=== PATIENT | female | born 2000 | race Caucasian/White ===

== ENCOUNTER → 2019-11-24 15:23 | Outpatient (BNVA) | payer SELFPAY | PROVIDERS: Visit Provider Nurse Practitioner Family | DX: N39.0 Urinary tract infection, site not specified (principal) | CPT/HCPCS: 81003; 87491; 87591; 87661 ==

== ENCOUNTER 2020-07-11 22:03 | Emergency (ER) | payer SELFPAY ==
[2020-07-11 22:40] VITALS: BP 115/77; PULSE 75; RESP 18; TEMP 36.3; O2SAT 98; BMI 35.8
[2020-07-11 23:42] VITALS: BP 120/75; PULSE 65; RESP 16; O2SAT 100
[2020-07-12] VITALS (10 sets, daily range): BP systolic 99–122; BP diastolic 51–75; PULSE 51–76; RESP 17–20; O2SAT 94–99
[2020-07-12 00:24] LABS: Basophils % 0.3 %; Eosinophils # 0.1 10^3/uL (0.0-0.8); Hematocrit 41.5 % (37.0-47.0); Hemoglobin 13.4 g/dL (11.5-15.3); Lymphocytes # 3.6 10^3/uL (0.8-4.8); Lymphocytes % 34.2 %; Mean Corpuscular HGB Conc 32.3 g/dL (30.0-36.0); Mean Corpuscular Hemoglobin 27.9 pg (28.0-34.0); Mean Corpuscular Volume 86.3 fL (81-99); Mean Platelet Volume 9.3 fL (7.4-10.4); Monocytes # 0.8 10^3/uL (0.2-0.9); Monocytes % 7.7 %; Neutrophils # 5.95 10^3/uL (1.8-7.7); Neutrophils % 56.5 %; Nucleated Red Blood Cells % 0 %; Platelet Count 322 10^3/cmm (130-400); Red Blood Count 4.81 10^6/uL (4.1-5.3); Red Cell Distribution Width 12.2 % (12.1-15.1); White Blood Count 10.5 10^3/uL (4.0-10.0)
[2020-07-12 00:40] LABS: HCG, Serum Qual Negative (Negative)
[2020-07-12 00:44] LABS: Alanine Aminotransferase 10 U/L (0-33); Albumin Level 4.7 g/dL (3.5-5.2); Alkaline Phosphatase 94 IU/L (35-105); Anion Gap 14.7 (5-19); Aspartate Amino Transferase 13 U/L (0-32); Blood Urea Nitrogen 11 mg/dL (6-20); Calcium 9.5 mg/dL (8.5-10.5); Carbon Dioxide 26 mmol/L (22-29); Chloride 99 mmol/L (98-107); Globulin 3.3 g/dL (1.3-4.6); Glomerular Filtration Rate 90.5 mL/min (90-130); Glucose 93 mg/dL (65-115); Lipase 20 U/L (13-60); Osmolality Calculated 281 mOsm/kg (285-295); Potassium 3.7 mmol/L (3.5-5.1); Sodium 136 mmol/L (136-145); Total Bilirubin 0.2 mg/dL (0.15-1.2)
--- NOTE | 2020-07-12 01:08 | US_ITS ---
WS: [id number] RIGHT UPPER QUADRANT ULTRASOUND HISTORY: Pain COMPARISON: 08/05/2015 Liver: 13.7 cm in length. Normal size liver. No bile duct dilatation or mass. Gallbladder: Normally distended gallbladder with no stones or wall thickening. CBD: 0.3 cm Pancreas: Not well visualized. Right kidney: 9.6 cm in length. Normal size and echogenicity. No hydronephrosis or mass. Aorta and IVC: Unremarkable abdominal aorta and IVC. No ascites. US/US gall bladder [id number] IMPRESSION: Normal RIGHT upper quadrant ultrasound.
--- NOTE | 2020-07-12 01:45 | XR_ITS ---
WS: [id number] PORTABLE CHEST HISTORY: Pleuritic pain COMPARISON: 06/19/2019 Lungs are clear and well expanded. No pleural effusion or pneumothorax. Cardiac size: Normal. Mediastinum/Aorta: Normal mediastinum. No osseous abnormality seen. XR/XR chest 1V portable [id number] IMPRESSION: Unremarkable portable chest.
--- NOTE | 2020-07-12 01:45 | ED_ITS ---
HPI - Abdominal Pain General: Chief Complaint: Abdominal Pain Stated Complaint: LOW BACK PAIN X 2 MONTHS Time Seen by Provider: 07/12/20 01:03 Source: patient Mode of arrival: ambulatory Limitations: no limitations History of Present Illness: HPI narrative: Ro is a very nice 19-year-old female who comes in complaining of right upper quadrant and right back pain. Patient states the back pain and abdominal pain is been present for over a month. She states the pain is sharp and hurts more when she takes a deep breath and moves. The pain is not in her chest but she says only in the upper part of her right abdomen. It does not migrate. She describes the pain is sharp in nature. She has associated nausea but no vomiting. She states that she feels like she is constipated and does not have a bowel movement every day but when she does it is soft and loose. Patient has no fevers or chills. She denies any urinary symptoms or vaginal discharge or bleeding. Prior to this episode she is never had anything similar to this in the past. Associated Symptoms: Reports constipation and nausea; Denies chills, coffee ground emesis, GI cramping, diarrhea, dysuria, fever(s), heartburn, hematochezia, hematuria, hematemesis, melena, syncope and vomiting Related Data: Date of Last Menstrual Period: 06/28/20 Review of Systems Const: Denies: fever(s), chills, body aches, fatigue, malaise or diaphoresis Eyes: Denies: change in vision, blurry vision, photophobia, eye discomfort, ey e discharge, eye redness or yellow eyes ENMT: Denies: throat pain, odynophagia, hoarseness, swelling of lips/tongue, ear or mastoid pain, ear discharge, change in hearing or nasal discharge Card: Denies: chest pain, palpitations, irregular heart rhythm, edema, lightheadedness, syncope, pre-syncope, dyspnea on exertion or orthopnea Resp: Denies: dyspnea, productive cough, non-productive cough, wheezing, hemoptysis or chest congestion GI: Reports: abdominal pain, nausea and constipation; Denies: vomiting, hematemesis, coffee ground emesis, heartburn, diarrhea, GI cramping, hematochezia or melena : Denies: flank pain, dysuria, urinary frequency, urinary urgency or hematuria Musc: Denies: neck pain, back pain, extremity pain, extremity swelling, joint pain, joint swelling, joint redness, joint warmth or joint stiffness Skin/Breast: Denies: rash, pruritus, erythema, skin pain or skin tenderness Neuro: Denies: headache(s), numbness in extremities, weakness in extremities, sensory changes, lack of coordination, difficulty walking, dizziness, vertigo, confusion, Slurred speech present or seizure-like activity Kingsley/Lymph: Denies: easy bruising, easy bleeding, petechiae, purpura or enlarged lymph nodes All/Imm: Denies: urticaria, throat swelling, tongue swelling, facial swelling or acute wheezing PFSH ED PFSH: Medical History (Updated 07/12/20 @ 05:48 by Kelly Hagan) No pertinent past medical history Surgical History (Updated 07/12/20 @ 01:47 by Kelly Hagan) No pertinent past surgical history Social History (Updated 11/24/19 @ 14:45 by Amanda Auguste LPN) Smoking and tobacco status: never smoked Alcohol intake: never Female Reproductive History: Date of last menstrual period: 06/28/20 Physical Exam Const: COMMON NORMALS: no acute distress, patient oriented x3, no limitations and alert GENERAL APPEARANCE: cooperative HENMT: COMMON NORMALS: normocephalic, atraumatic, external ears normal, EAC's normal and Normal external nose present HEAD & SCALP: normal to inspection, normocephalic and atraumatic FACE & SINUS: normal facial exam and face symme tric NOSE: Normal external nose present and Normal nares present EXTERNAL EAR: Yes external ears normal EXTERNAL AUDITORY CANAL: EAC's normal MOUTH: Normal oral and palatal mucosa present, lip normal and tongue normal Eye: COMMON NORMALS: Equal, round and reactive pupils present and conjunctivae normal GENERAL EYE: appearance normal, both eyes and all related structures ALIGNMENT: Yes alignment normal PERIORBITAL: periorbital findings normal EYELID: eyelids normal CONJUNCTIVA: Yes conjunctivae normal SCLERA: sclerae normal PUPIL: Yes Equal, round and reactive pupils present Neck/C-Spine: COMMON NORMALS: full ROM, no lymphadenopathy, supple, no meningeal signs and no JVD GENERAL: Yes normal visual inspection and Yes trachea midline Chest: COMMONS NORMALS: normal inspection of the chest and normal palpation of entire chest wall Resp: COMMON NORMALS: normal respiratory effort, No retractions, No use of acc essory muscles and clear to auscultation bilaterally EFFORT & INSPECTION: Yes able to speak in complete sentences and Yes symmetric chest movement AUSCULTATION: clear to auscultation bilaterally, no crackles, no rales, no rhonchi and no wheezes Cardio: COMMON NORMALS: no JVD, regular rate, regular rhythm, S1 normal heart sound present and S2 normal heart sound present RATE: regular rate RHYTHM: regular rhythm HEART SOUNDS: S1 normal heart sound present, S2 normal heart sound present, no click, no gallops, no murmurs and no rubs GI: COMMON NORMALS: Soft to palpation and No hepatosplenomegaly present PALPATION: Yes Soft to palpation, Yes Tenderness to palpation present (GI) Details: RUQ (Moderate without guarding or rebound.), No Guarding due to palpation present (GI), No Rigid due to palpation, Yes No hepatosplenomegaly present, No Hernia present, No Palpable mass present and No Pulsatile mass present : COMMON NORMALS: Yes no CVA tenderness BLADDER/KIDNEY EXAM: Yes no CVA tenderness EXTERNAL FEMALE EXAM: No Hernia present Back/Pelvis: COMMON NORMALS: no CVA tenderness, thoracic and lumbar spine normal to inspection, no thoracic nor lumbar tenderness and thoraco-lumbar ROM normal Extremity: COMMON NORMALS: normal to inspection, full ROM, capillary refill normal, no joint enlargement, no clubbing, cyanosis or edema and no calf tenderness Neuro: COMMON NORMALS: patient oriented x3, CN's II-XII intact bilaterally, moves all extremities, no focal motor deficits and no sensory deficits noted SENSORIUM/ORIENTATION: Yes alert MENINGEAL SIGNS: Yes no meningeal signs SPEECH: speech normal Psych: COMMON NORMALS: mental status grossly normal, Normal thought process present, cooperative, normal affect, speech normal and activity/motor behavior normal SPEECH: Yes normal speech THOUGHT PROCESS: Normal thought process present Skin: COMMON NORMALS: no rashes or lesions noted, turgor normal, no jaundice, no petechiae and no mottling GENERAL SKIN EXAM: no rashes or lesions noted and turgor normal Course Vital Signs: Vital signs: Vital Signs Temperature 97.3 F L 07/11/20 22:40 Pulse Rate 76 07/12/20 05:00 Respiratory Rate 18 07/12/20 05:00 Blood Pressure 106/68 07/12/20 05:00 Pulse Oximetry 99 07/12/20 05:00 MDM - Abdominal Pain MDM Narrative: Medical decision making narrative: 0549 -has no pain. As she was here her pain seemed to be migrating down to the right lower quadrant but there is no definitive pain on palpation there. Her pain is still mostly in the right upper quadrant. Her ultrasound is unremarkable and her labs are normal. It is possible she has a dysfunctional gallbladder or ulcer disease. Patient does not take anything at home for antacid so I will place her on Protonix. She agrees to follow with Dr. Wright for further evaluation and care. As her pain is been prolonged over a month or more I do not believe this is appendicitis but as her pain is moved down to the right lower quadrant here she agrees to return in 12 hours for recheck to rule out appendicitis. Patient had no other questions or concerns and agrees with this follow-up plan. Differential Diagnosis: Differential diagnosis abdominal pain: Likely abdominal pain, acute appendicitis, calculus of kidney, constipation, diverticulitis, endometriosis, gastroenteritis, pancreatitis and small bowel obstruction Lab Data: Attestation: I reviewed the patient's lab results. Labs: Lab Results 07/12/20 07/12/20 07/12/20 Range/Units 00:10 00:10 00:10 WBC 10.5 H (4.0-10.0) 10^3/ uL RBC 4.81 (4.1-5.3) 10^6/u L Hgb 13.4 (11.5-15.3) g/dL Hct 41.5 (37.0-47.0) % MCV 86.3 (81-99) fL MCH 27.9 L (28.0-34.0) pg MCHC 32.3 (30.0-36.0) g/dL RDW 12.2 (12.1-15.1) % Plt Count 322 (130-400) 10^3/c mm MPV 9.3 (7.4-10.4) fL Neut % (Auto) 56.5 % Lymph % (Auto) 34.2 % Pennington % (Auto) 7.7 % Eos % (Auto) 1.0 % Baso % (Auto) 0.3 % Neut # (Auto) 5.95 (1.8-7.7) 10^3/u L Lymph # (Auto) 3.6 (0.8-4.8) 10^3/u L Pennington # (Auto) 0.8 (0.2-0.9) 10^3/u L Eos # (Auto) 0.1 (0.0-0.8) 10^3/u L Baso # (Auto) 0.0 (0.0-0.1) 10^3/u L Nucleated RBC % (a uto) 0 % Nucleated RBCs # 0.0 /100WBC D-Dimer (0-0.59) ug/mIFE U Sodium 136 (136-145) mmol/L Potassium 3.7 (3.5-5.1) mmol/L Chloride 99 (98-107) mmol/L Carbon Dioxide 26 (22-29) mmol/L Anion Gap 14.7 (5-19) BUN 11 (6-20) mg/dL Creatinine 0.8 (0.5-0.9) mg/dL GFR Calculation 90.5 (90-130) mL/min Glucose 93 (65-115) mg/dL Calculated Osmolal ity 281 L (285-295) mOsm/k g Calcium 9.5 (8.5-10.5) mg/dL Total Bilirubin 0.2 (0.15-1.2) mg/dL AST 13 (0-32) U/L ALT 10 (0-33) U/L Alkaline Phosphata se 94 (35-105) IU/L Total Protein 8.0 (6.6-8.7) g/dL Albumin 4.7 (3.5-5.2) g/dL Globulin 3.3 (1.3-4.6) g/dL Lipase 20 (13-60) U/L HCG, Qual Negative (Negative) Urine Color (Yellow) Urine Appearance (CLEAR) Urine pH (5-7) Ur Specific Gravit y (1.005-1.030) Urine Protein (Negative) Urine Glucose (UA) (Normal) Urine Ketones (Negative) Urine Blood (Negative) Urine Nitrate (Negative) Urine Bilirubin (Negative) Urine Urobilinogen (Negative) mg/dL Ur Leukocyte Taisha ase (Negative) 07/12/20 07/12/20 Range/Units 00:10 01:55 WBC (4.0-10.0) 10^3/ uL RBC (4.1-5.3) 10^6/u L Hgb (11.5-15.3) g/dL Hct (37.0-47.0) % MCV (81-99) fL MCH (28.0-34.0) pg MCHC (30.0-36.0) g/dL RDW (12.1-15.1) % Plt Count (130-400) 10^3/c mm MPV (7.4-10.4) fL Neut % (Auto) % Lymph % (Auto) % Pennington % (Auto) % Eos % (Auto) % Baso % (Auto) % Neut # (Auto) (1.8-7.7) 10^3/u L Lymph # (Auto) (0.8-4.8) 10^3/u L Pennington # (Auto) (0.2-0.9) 10^3/u L Eos # (Auto) (0.0-0.8) 10^3/u L Baso # (Auto) (0.0-0.1) 10^3/u L Nucleated RBC % (a uto) % Nucleated RBCs # /100WBC D-Dimer <= 0.27 (0-0.59) ug/mIFE U Sodium (136-145) mmol/L Potassium (3.5-5.1) mmol/L Chloride (98-107) mmol/L Carbon Dioxide (22-29) mmol/L Anion Gap (5-19) BUN (6-20) mg/dL Creatinine (0.5-0.9) mg/dL GFR Calculation (90-130) mL/min Glucose (65-115) mg/dL Calculated Osmolal ity (285-295) mOsm/k g Calcium (8.5-10.5) mg/dL Total Bilirubin (0.15-1.2) mg/dL AST (0-32) U/L ALT (0-33) U/L Alkaline Phosphata se (35-105) IU/L Total Protein (6.6-8.7) g/dL Albumin (3.5-5.2) g/dL Globulin (1.3-4.6) g/dL Lipase (13-60) U/L HCG, Qual (Negative) Urine Color Yellow (Yellow) Urine Appearance Clear (CLEAR) Urine pH 6 (5-7) Ur Specific Gravit y 1.015 (1.005-1.030) Urine Protein Neg (Negative) Urine Glucose (UA) Norm (Normal) Urine Ketones Negative (Negative) Urine Blood Neg (Negative) Urine Nitrate Negative (Negative) Urine Bilirubin Neg (Negative) Urine Urobilinogen Norm (Negative) mg/dL Ur Leukocyte Taisha ase Negative (Negative) Imaging Data ^: CXR: Attestation: I personally reviewed and interpreted this imaging study as follows: My impression: No acute cardiopulmonary findings. CT Abd/Pel: Radiologist's impression: [address] [place] [address] CT Scan Report Signed Patient: Ro Rossi Unit #: [id number] : 2000 Age/Sex: 19 / F ADM Date: 07/11/20 Loc: ER Room/Bed: Attending Dr: Ordering Provider/Ordering MD: Kelly Hagan DO Date of Service: 07/12/20 Procedure(s): CT abdomen pelvis w con* [id number] Accession Number(s): [id number] Report Number: [id number] PROCEDURE INFORMATION: Exam: CT Abdomen And Pelvis With Contrast Exam date and time: 07/12/2020 4:32 AM Age: 19 years old Clinical indication: Abdominal pain; Generalized TECHNIQUE: Imaging protocol: Computed tomography of the abdomen and pelvis with intravenous contrast. Radiation optimization: All CT scans at this facility use at least one of these dose optimization techniques: automated exposure control; mA and/or kV adjustment per patient size (includes targeted exams where dose is matched to clinical indication); or iterative reconstruction. Contrast material: OMNI 300; Contrast volume: 95 ml; Contrast route: INTRAVENOUS (IV); COMPARISON: US gall bladder [id number] 07/12/2020 2:53 AM RADIATION DOSE METRICS: Total DLP (mGy-cm): 1049.03 FINDINGS: Liver: No mass. Gallbladder and bile ducts: No calcified stones. No ductal dilation. Pancreas: No ductal dilation. Spleen: No splenomegaly. Adrenals: No mass. Kidneys and ureters: No hydronephrosis. Stomach and bowel: No obstruction. No mucosal thickening. Appendix: No evidence of appendicitis. Intraperitoneal space: No free air. No significant fluid collection. Vasculature: No abdominal aortic aneurysm. Lymph nodes: No enlarged lymph nodes. Urinary bladder: Unremarkable as visualized. Reproductive: Unremarkable as visualized. Bones/joints: Unremarkable. No acute fracture. Soft tissues: Unremarkable. CT/CT abdomen pelvis w con* [id number] IMPRESSION: No acute findings. Radiation Dose CTDIVOL = (mGy): DLP = 1049.03 (mGy-cm) Dictated By: Gaurang Payan MD Signed By: Gaurang Payan MD Signed Date/Time: 07/12/20517 DD/ 5 US: My impression: Ultrasound gallbladder, tech interpretation -no acute findings. Gallbladder normal. Normal wall thickness. No pericholecystic fluid. Normal CBD. Discharge Plan Discharge Patient Disposition: Home Clinical Impression: Abdominal pain Qualifiers: Abdominal location: generalized Qualified Code(s): R10.84 - Generalized abdominal pain Condition: Stable Prescriptions: New Protonix 40 mg tablet,delayed release (DR/EC) 40 mg PO BID 14 Days Qty: 28 RF: 0 Zofran 4 mg tablet 4 mg PO Q6H PRN (Reason: nausea and vomiting) Qty: 20 RF: 0 No Action sulfamethoxazole-trimethoprim [Bactrim DS] 800-160 mg tablet 1 tab PO BID 7 Days Qty: 14 RF: 0 mupirocin 2 % ointment 1 applic TOPICAL TID 7 Days Qty: 15 RF: 0 Discharge Orders: Discharge Order (Routine); Ordered 07/12/20 Ordered By: Kelly Hagan Referrals: Isaiah Wright MD [Physician] - 1-3 days Discharge Diet: Advance as tolerated and Clear Liquid Discharge Activity: Increase activity as tolerated Patient Instructions: Abdominal Pain (ED) Activity Restrictions/Additional Instructions: Please return to the ER immediately for any of the signs or symptoms listed on your discharge instruction sheets, worsening/changing of your symptoms, you are not getting better as quickly as expected, or for ANY other cause or concerns. Please return to the ER within the next 12 hours for recheck of your abdominal pain as appendicitis has not been definitively ruled out as a cause. You will need to follow-up with Dr. Wright as an outpatient as he can perform an outpatient HIDA scan and possible EGD to determine a cause of your pain. Follow a clear liquid diet and advance it as tolerated once your pain is gone. Coding Level of Care Code ED Light Bulb Replacer for Chg Fwd Exam Comprehensive
[2020-07-12] MEDS: sodium chloride 0.9% 1,000 ML 999 ML IV (01:50)
[2020-07-12] MEDS: ondansetron 2 mg/ML SDV 2 mL 4 MG IVP (01:55)
[2020-07-12] MEDS: morphine 4 mg/mL SDV 1 mL IVP ×3 (02:00→04:53)
--- NOTE | 2020-07-12 03:04 | CTR_ITS ---
PROCEDURE INFORMATION: Exam: CT Abdomen And Pelvis With Contrast Exam date and time: 07/12/2020 4:32 AM Age: 19 years old Clinical indication: Abdominal pain; Generalized TECHNIQUE: Imaging protocol: Computed tomography of the abdomen and pelvis with intravenous contrast. Radiation optimization: All CT scans at this facility use at least one of these dose optimization techniques: automated exposure control; mA and/or kV adjustment per patient size (includes targeted exams where dose is matched to clinical indication); or iterative reconstruction. Contrast material: OMNI 300; Contrast volume: 95 ml; Contrast route: INTRAVENOUS (IV); COMPARISON: US gall bladder [id number] 07/12/2020 2:53 AM RADIATION DOSE METRICS: Total DLP (mGy-cm): 1049.03 FINDINGS: Liver: No mass. Gallbladder and bile ducts: No calcified stones. No ductal dilation. Pancreas: No ductal dilation. Spleen: No splenomegaly. Adrenals: No mass. Kidneys and ureters: No hydronephrosis. Stomach and bowel: No obstruction. No mucosal thickening. Appendix: No evidence of appendicitis. Intraperitoneal space: No free air. No significant fluid collection. Vasculature: No abdominal aortic aneurysm. Lymph nodes: No enlarged lymph nodes. Urinary bladder: Unremarkable as visualized. Reproductive: Unremarkable as visualized. Bones/joints: Unremarkable. No acute fracture. Soft tissues: Unremarkable. CT/CT abdomen pelvis w con* [id number] IMPRESSION: No acute findings. Radiation Dose CTDIVOL = (mGy): DLP = 1049.03 (mGy-cm)
[2020-07-12 03:46] LABS: D Dimer <= 0.27 ug/mIFEU (0-0.59)
[2020-07-12 03:46] LABS: Add Urine Microscopic? NO
[2020-07-12 03:52] LABS: Bilirubin Urine Neg (Negative); Blood Urine Neg (Negative); Glucose Urine UA Norm (Normal); Ketones Urine Negative (Negative); Leukocyte Esterase Urine Negative (Negative); Nitrate Urine Negative (Negative); Protein Urine Neg (Negative); Specific Gravity, Urine 1.015 (1.005-1.030); Urine Appearance Clear (CLEAR); Urine Color Yellow (Yellow); Urobilinogen Urine Norm (Negative); pH Urine 6 (5-7)
[2020-07-12] MEDS: iohexol 300 mg/mL 100 mL Btl IV (04:43)
[2020-07-12] MEDS: pantoprazole 40 mg SDV 80 MG IVP (06:07)
--- NOTE | 2020-07-15 10:36 | DCPLANNER ---
satellite manager had message to schedule a follow up appointment for patient with Dr. Wright. satellite manager called [facility], spoke with Obdulio, a follow up appointment is scheduled for patient for Thursday, July 16, 2020 at 2:[address] Wright. Clinic will call patient with appointment information.
--- NOTE | 2020-07-26 16:08 | DCPLANNER ---
Patient had a follow up appointment scheduled for 07.16.20 with [facility] - patient did attend appointment.
== END 2020-07-12 06:20 | disposition home or self-care (01) ==
PROVIDERS: Emergency Medicine; Emergency Provider Emergency Medicine
DX: R10.84 Generalized abdominal pain (principal)
CPT/HCPCS: 12345; 71045; 74177; 76705; 80053; 81003; 83690; 84703; 85025; 85378; 96361; 96374; 96375; 96376; 99283; C9113; J2270; J2405; J7030; Q9967

== ENCOUNTER → 2020-08-23 11:24 | Outpatient (BNVA) | payer SELFPAY | PROVIDERS: Visit Provider Nurse Practitioner | DX: R39.89 Other symptoms and signs involving the genitourinary system (principal); N89.8 Other specified noninflammatory disorders of vagina | CPT/HCPCS: 87530 ==

== ENCOUNTER → 2021-10-22 10:44 | Outpatient (BNVA) | payer OTHER, SELFPAY | PROVIDERS: Visit Provider Nurse Practitioner Family | DX: Z20.822 Contact with and (suspected) exposure to COVID-19 (principal) | CPT/HCPCS: 87635 ==

== ENCOUNTER → 2021-11-19 09:00 | Outpatient (BNVA) | payer OTHER, SELFPAY | PROVIDERS: Visit Provider Obstetrics & Gynecology | DX: Z12.4 Encounter for screening for malignant neoplasm of cervix (principal) | CPT/HCPCS: 88175 ==

== ENCOUNTER 2022-01-25 10:37 | Emergency (ER) | payer OTHER, SELFPAY ==
[2022-01-25 10:57] VITALS: BP 119/71; PULSE 89; RESP 16; TEMP 36.2; O2SAT 97; BMI 35.1
--- NOTE | 2022-01-25 11:11 | XRR_ITS ---
PROCEDURE INFORMATION: Exam: XR Left Knee Exam date and time: 01/25/2022 11:19 AM Age: 21 years old Clinical indication: Injury or trauma; Fall; Blunt trauma; Knee; Left TECHNIQUE: Imaging protocol: XR Left knee. Views: 3 views. COMPARISON: No relevant prior studies available. FINDINGS: Bones/joints: No acute fracture or malalignment. Joint spaces are maintained. Small joint effusion. Soft tissues: Normal. XR/XR knee LT 3V* [id number] IMPRESSION: 1. No acute fracture or malalignment. 2. Small joint effusion.
--- NOTE | 2022-01-25 11:17 | ED_ITS ---
HPI - Extremity Injury (Lower) General: Chief Complaint: Extremity Injury, Lower Stated Complaint: Left knee injury Time Seen by Provider: 01/25/22 11:16 Source: patient Mode of arrival: wheelchair Limitations: no limitations History of Present Illness: Patient is a 21-year-old female presents to ED today for evaluation of left knee pain/injury. Patient tells me yesterday she was dancing when she heard a pop to her left knee. She states it immediately was painful but she was able to continue bearing weight. She states later that evening she fell off of a porch and landed onto the left knee. Patient states since that time she has not been able to bear much weight on the extremity. He has no other injuries or complaints at this time. MD complaint: knee injury Onset (ago): day(s) (yesterday) Severity: severe Relieving factors: immobilization Exacerbating factors: weight bearing, movement and palpation Context: fall and other (twisting) Associated symptoms: Reports inability to bear weight Other symptoms: none Review of Systems Card: Denies: chest pain Resp: Denies: dyspnea Musc: Reports: joint pain (L knee) and limited range of motion; Denies: extremity swelling, joint redness or joint warmth Neuro: Denies: numbness in extremities, weakness in extremities or sensory changes PFS ED PFSH: Medical History Asthma Diagnosed as a child. Mild intermittent and uses an albuterol inhaler as needed. ----> Does not have a photographic plate maker or primary care doctor and usually gets refills through urgent care. No pertinent past medical history Denies diabetes, hypertension, seizures, DVT/PE PCP: Lilibeth Slaughter Surgical History S/P wisdom tooth extraction Family History Denies family history of Colon cancer Ovarian cancer Heart disease Hyperlipidemia Breast cancer Hypertension Uterine cancer Thyroid condition Stroke Physical Exam Const: COMMON NORMALS: no acute distress, patient oriented x3, no limitations and alert GENERAL APPEARANCE: cooperative NUTRITIONAL APPEARANCE: overweight Extremity: COMMON NORMALS: capillary refill normal, no clubbing, cyanosis or edema, no calf tenderness and no pedal edema GENERAL: Yes normal exam except as noted LEFT LOWER EXTREMITY: Yes knee joint (no obvious swelling/effusion; no bony deformity) Left knee: Yes palpation (maximum tenderness to lateral joint line), Yes ROM (limited extention secondary to pain), Yes neurovascular exam (normal) and Yes special tests (TTP with varus stress ) Neuro: COMMON NORMALS: patient oriented x3 SENSORIUM/ORIENTATION: Yes alert Course Vital Signs: Vital signs: Vital Signs Temperature 97.1 F L 01/25/22 10:57 Pulse Rate 91 01/25/22 12:34 Respiratory Rate 18 01/25/22 12:34 Blood Pressure 121/81 01/25/22 12:34 Pulse Oximetry 97 01/25/22 12:34 MDM - Extremity Injury (Lower) Medical Decision Making Pt has a small ossific density just superior to her fibular head. It does appear well corticated however she is most tender to her lateral joint line and there is a possibility of a LCL tear which could cause a small avulsion from its insertion point. Will place patient in knee immobilizer/crutches and have her follow up with orthopedics for further evaluation. Lab Data Radiology Impressions Knee X-Ray 01/25/22 11:11 IMPRESSION: 1. No acute fracture or malalignment. 2. Small joint effusion. ADDENDUM: 01/25/22 1206 Tiny corticated ossific density adjacent to the head of the fibula is of uncertain significance. An acute avulsion fracture is felt less likely, though not entirely excluded. Cross-sectional imaging could further evaluate as clinically warranted. Discharge Plan Discharge Patient Disposition: Home Clinical Impression: Injury of knee, left Qualifiers: Encounter type: initial encounter Qualified Code(s): S89.92XA - Unspecified injury of left lower leg, initial encounter Condition: Stable Prescriptions: New ibuprofen 800 mg tablet 800 mg PO Q8H PRN (Reason: pain) Qty: 20 0RF acetaminophen-codeine 300-30 mg tablet 1 tab PO Q6H PRN (Reason: pain) Qty: 14 0RF No Action albuterol sulfate [Ventolin HFA] 90 mcg/actuation HFA aerosol inhaler 2 puff inhalation Q6H PRN0RF Discharge Orders: Discharge ED (Routine); Ordered 01/25/22 Ordered By: Serena Snell Coding Level of Care Code ED Audience Development Manager for Chg Fwd Exam Expanded Problem Focused
[2022-01-25 12:34] VITALS: BP 121/81; PULSE 91; RESP 18; O2SAT 97
--- NOTE | 2022-01-26 10:24 | DCPLANNER ---
Addendum entered by Shiela Watts 02/04/22 21:23: Patient had a follow up appointment scheduled with ortho - patient did attend appointment. Addendum entered by Shiela Watts 01/27/22 08:49: Patient has a follow up appointment scheduled for Wednesday, January 28, 2022 at 2:[address] Jones at ortho. Clinic will call patient with appointment information. Original Note: manager of marketing had message to schedule a follow up appointment for patient with ortho. manager of marketing sent patients information to the front office staff at ortho. Patients information will be printed and reviewed. Clinic will call patient with appointment information.
== END 2022-01-25 12:36 | disposition home or self-care (01) ==
PROVIDERS: Emergency Provider Physician Assistant
DX: S89.92XA Unspecified injury of left lower leg, initial encounter (principal); W17.89XA Other fall from one level to another, initial encounter; X50.1XXA Overexertion from prolonged static or awkward postures, initial encounter; Y93.41 Activity, dancing
CPT/HCPCS: 29530; 73562; 99282; E0114

== ENCOUNTER → 2022-01-28 14:27 | Outpatient (BNVA) | payer OTHER, SELFPAY | PROVIDERS: Referring Provider Physician Assistant; Visit Provider Specialist | DX: S89.92XA Unspecified injury of left lower leg, initial encounter (principal); X58.XXXA Exposure to other specified factors, initial encounter | CPT/HCPCS: 73562 ==

== ENCOUNTER 2022-01-28 16:11 | Outpatient (CLI) | payer OTHER, SELFPAY | END 2022-01-28 16:12 | disposition home or self-care (01) | LOC: SPT 16:11 | PROVIDERS: Visit Provider Specialist | DX: Z46.89 Encounter for fitting and adjustment of other specified devices (principal); M25.562 Pain in left knee | CPT/HCPCS: 97760; L1832 ==

== ENCOUNTER 2022-02-26 05:55 | Day surgery (SDC) | payer OTHER, SELFPAY ==
[2022-02-23 09:36] VITALS: BMI 35.1
--- NOTE | 2022-02-23 13:59 | P.ANESASSM_ITS ---
Pre-Anesthetic Assessment Height/Weight: Height 1.57 m Weight 87.09 kg Preop Diagnosis: Anterior cruciate ligament tear Operation Date: 02/26/22 13:55 Proposed Procedures p Left Knee anterior cruciate ligament reconstruction 40388/S83.512A(Left) - Ata Fermin MD Familial anesthetic complications: None Was Beta Lucien taken within 24 hours: N/A Was Clonidine taken within 24 hours: N/A Social No alcohol and No tobacco Exam alert, oriented x 3, clear to auscultation bilaterally and regular rate & rhythm Airway Submandibular: within normal limits Cervical ROM: within normal limits Mallampati: Class I Dentition: full History/ROS No significant complaints Pulmonary Asthma (well controlled, no hospitalizations ) CV/HEM None reported None reported Hepatic None reported GI None reported Metabolic None reported Musc/skel ACL sprain/injury Neuropsych None reported Anesthetic Plan ASA status: 2 Anesthesia: Anesthesia Evaluation, General and Regional (specify below) (Adductor canal block ) Other: We discussed risk and benefits of general anesthesia including PONV, sore throat (sometimes severe), corneal abrasion, positioning and peripheral nerve injuries, life threatening allergic reaction, post operative ICU admission requiring prolonged intubation, stroke, heart attack, , and rare incidences of recall. Patient consents to proceed with general anesthesia. We discussed risk and benefits of nerve block for post op pain control including management of pain and titration of pain medications as signs/symptoms of nerve block wearing off begin to appear and/or prior bed. We discussed risk of failed nerve block, vascular injury or other vital structure injury, abscess/infection, LAST, and nerve injury. Patient consents to adductor canal block for post op pain control. Risk of > 500 ml blood loss (7ml/kg in children): No Medications/Allergies Home Medications Medication Instructions Recorded Confirmed Last Taken Type albuterol sulfate 90 mcg/actuation 2 puff INHALATION Q6H PRN 11/19/21 02/23/22 Unknown History aerosol inhaler (Ventolin HFA) ibuprofen 800 mg tablet 800 mg PO Q8H PRN #20 tab 01/25/22 02/23/22 Unknown Rx TYE #1 ea NS 01/28/22 02/06/22 Unknown Rx escitalopram oxalate 10 mg tablet 10 mg PO DAILY 01/28/22 02/23/22 Unknown History lubiprostone 8 mcg capsule 8 mcg PO BID 01/28/22 02/23/22 Unknown History Allergies Allergy/AdvReac Type Severity Reaction Status Date / Time No Known Allergies Allergy Verified 02/06/22 11:12 [facility] Anesthesia Medical History Asthma Diagnosed as a child. Mild intermittent and uses an albuterol inhaler as needed. 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 No pertinent past medical history Denies diabetes, hypertension, seizures, DVT/PE PCP: Lilibeth Slaughter Surgical History S/P wisdom tooth extraction Family History Denies family history of Colon cancer Ovarian cancer Heart disease Hyperlipidemia Breast cancer Hypertension Uterine cancer Thyroid condition Stroke Social History Smoking and tobacco status: never smoked Female Reproductive History Date of last menstrual period: 02/14/22 Data Anesthesia Cardiac Studies: No Data to Display
[2022-02-26] VITALS (15 sets, daily range): BP systolic 111–140; BP diastolic 61–91; PULSE 82–93; RESP 16–20; TEMP 36.1–36.6; O2SAT 92–99
[2022-02-26] MEDS: sodium chloride 0.9% 1,000 ML 30 ML IV (06:25)
--- NOTE | 2022-02-26 06:29 | P.ANESUD_ITS ---
Pre-Anesthetic Update Pre-Anesthetic Assessment: Date of Surgery/Procedure: 02/26/22 Preop Tabitha gnosis: Anterior cruciate ligament tear Proposed Procedure: Operation Date: 02/26/22 07:00 Proposed Procedures p Left Knee anterior cruciate ligament reconstruction 31458/S83.512A(Left) - Ata Fermin MD Any changes to Pre-Anesthetic Assessment?: No Last Intake: Intake Last Liquid Date 02/25/22 Last Liquid Time 19:00 Last Solid Date 02/25/22 Last Solid Time 18:00 Vitals: Temperature 97.6 F 02/26/22 06:10 Temperature Source Temporal Artery S can 02/26/22 06:10 Pulse Rate 86 02/26/22 06:10 Respiratory Rate 16 02/26/22 06:10 Blood Pressure 124/79 02/26/22 06:10 Blood Pressure Melissa n 94 02/26/22 06:10 Pulse Oximetry 97 02/26/22 06:10 Oxygen Delivery Me thod 02/26/22 06:10 Exam: Pre-Anes Outpt Exam: alert, oriented x 3, clear to auscultation bilaterally and regular rate & rhythm Cardiac Studies: No Data to Display
[2022-02-26] MEDS: acetaminophen 500 mg Tablet 1000 MG PO (06:44)
[2022-02-26] MEDS: oxyCODONE 20 mg ER (12 HR) Tablet PO (06:44)
--- NOTE | 2022-02-26 07:04 | W.PM.OPSUD ---
Surgery/Procedure H&P Update DATE OF PROCEDURE: February 26, 2022 DATE H&P PERFORMED: 02/06/22 H&P UPDATE INFORMATION: I have reviewed H&P completed within last 30 days PREOP DIAGNOSIS: Anterior cruciate ligament tear PLANNED PROCEDURE: Operation Date: 02/26/22 07:00 Proposed Procedures p Left Knee anterior cruciate ligament reconstruction 47783/S83.512A(Left) - Ata Fermin MD
--- NOTE | 2022-02-26 07:05 | W.PM.OPSUD ---
Surgery/Procedure H&P Update DATE OF PROCEDURE: February 26, 2022 DATE H&P PERFORMED: 02/06/22 H&P UPDATE INFORMATION: I have reviewed H&P completed within last 30 days PREOP DIAGNOSIS: Anterior cruciate ligament tear PLANNED PROCEDURE: Operation Date: 02/26/22 07:00 Proposed Procedures p Left Knee anterior cruciate ligament reconstruction 08080/S83.512A(Left) - Ata Fermin MD
[2022-02-26] MEDS: morphine 4 mg/mL SDV 1 mL 8 MG XX (08:20)
--- NOTE | 2022-02-26 09:29 | PM.OP ---
Operative Report Date of procedure: February 26, 2022 Pre-op diagnosis: Preop Diagnosis Anterior cruciate ligament tear Post-op diagnosis: same Post-op diagnosis: Same Procedure done: Left anterior cruciate ligament reconstruction Implants: [employer]hew Endobutton 20 mm closed loop, 10 x 20 mm Biosure PK screw, 9/10 Biosure Sync sleeve, 11 mm Arthrex Speedgraft Pathology: none sent Surgeon: Ata Fermin Anesthesia: General Estimated blood loss (mL): 10 Tourniquet time (min): 75 Complications: None Findings: The patient had complete disruption of her anterior cruciate ligament. She had healthy menisci and healthy-appearing cartilaginous surfaces Procedure: Patient was taken to the operating room and given a general anesthesia. She prepped and draped in the supine position. The knee was infiltrated with 30 cc of Marcaine and 10 mg of morphine placed in the area of the medial and lateral portals and intra-articular into the knee. The knee was entered through a standard inferior medial and inferolateral portals to diagnose portion arthroscopy performed. The menisci were carefully inspected and found to be free of tearing. No significant chondral injury was identified. The patient was noted to have complete disruption of her anterior cruciate ligament with scarring back on the posterior cruciate ligament. Remnants of the anterior cruciate ligament were removed to lateral visualization of the posterior cruciate ligament and lateral wall. Attention was then paid to the anterior cruciate ligament. Utilizing an incisor shaver small amount of lateral wall was resected allowing visualization of the posterior lateral intercondylar notch. A 3 cm long incision was then made over the medial tibial plateau and dissection carried down with blunt scissors identifying a well-defined semi-tendinosis however a reasonable gracilis tendon could not be identified. The semitendinosis was freed off their insertion on the tibia and fixed with a Teague [employer] Nephew Ultrabraid suture. Using the closed ended tendon stripper to graft washarvested. On the back table with her freed of muscle and the free end fixed with the Ultrabraid suture. They were pretensioned on the back table. As the graft itself, even tripled, was not of adequate size decision was made to supplement with allograft. A 9 mm Arthrex speed graft was thawed. The allograft and semitendinosus were doubled over and fit snugly through a 11 mm tunnel. Using the anatomic femoral footprint guide, a guidepin was driven up from the 1:30 position exiting superior and lateral femur. Tunnel depth was measured at 43 mm. The Endobutton reamer was passed over the guide pin confirming the length of tunnel. A 11 mm reamer was then passed to a depth of 35 mm. The Teague [employer] Nephew ProTrac guide was used to pass a guidepin from the medial tibia exiting the tibial footprint. . A 11 mm reamer was passed over the guidepin exiting the tibial footprint of the anterior cruciate ligament. On the back table, the 2 grafts were doubled through a 20 mm closed loop Endobutton. This allowed 23 mm of tendon to be buried in the femur and allowed more than sufficient room to flip the Endobutton. The grafts were shuttled from the tibia through the femur using an ultra braid suture. The Endobutton was felt to flip on the lateral cortex and secured with tension on the sutures to the tibia. A Teague [employer] Neph[employer] Math Biosure Sync sleeve was placed and was secured with a 10 x 25 mm Biosure PK screw. The knee and medial wounds were irrigated with saline. The sartorius fascia was closed with 2-0 Vicryl. Deep tissues were closed with 2-0 Vicryl. The tibial wound was closed with a running 3-0 Prolene. Portals were closed with 3-0 Prolene. Steri-Strips were applied over the tibial incision. Sterile dressings were applied. The patient was placed in a hinged knee brace locked in full extension. They were taken to recovery room in stable condition.
[2022-02-26] MEDS: fentaNYL 50 mcg/mL INJ 2mL IVP ×2 (09:35→09:50)
[2022-02-26] MEDS: ondansetron 2 mg/ML SDV 2 mL 4 MG IVP (09:42)
--- NOTE | 2022-02-26 10:20 | ANES.PROC ---
Anesthesia Procedures Procedure/Date: 02/26/22 Nerve Block ^: Nerve Block 1: Main Anesthesia: general anesthesia Time Out Performed: Yes Consent: requested by attending/covering physician, from patient, risks and benefits reviewed and patient agrees to proceed Nerve block location: adductor canal (L) Anesthesia monitors applied: pulse oximetry, EKG, BP cuff and oxygen Nerve block position: supine Anesthetic Used: ropivicaine 0.5% and with decadron (4 mg) Ultrasound used to: recognize landmarks and visualize and ID femerol nerve Nerve Stimulator Used?: No Interscalene/Femoral BLK: 4 stimuplex 21 g needle used for position and inplane approach and visualize local anesthetic spread Injection: neg aspiration of heme Patient Tolerated Procedure: well Complications: none
[2022-02-26] MEDS: oxyCODONE 5 mg IR Tab/Cap PO (10:43)
--- NOTE | 2022-02-26 14:30 | ANE.PACU2 ---
Inpatient post-anesthesia follow up: Airway intact: Yes Vital signs: Temperature 98 F Pulse Rate 85 Respiratory Rate 16 Blood Pressure 131/70 Pulse Oximetry 98 Oxygen Delivery Me thod Nasal Cannula Oxygen Flow Rate 6 Fraction of Inspir ed Oxygen Hydration adequate: Yes Nausea and vomiting: No Pain level: 3 Mental status: Baseline
== END 2022-02-26 11:30 | disposition home or self-care (01) ==
PROVIDERS: PCP Physician Assistant; Visit Provider Orthopaedic Surgery
PROC: (CPT 27407; principal; 2022-02-26 07:00)
DX: S83.512A Sprain of anterior cruciate ligament of left knee, initial encounter (principal); X50.1XXA Overexertion from prolonged static or awkward postures, initial encounter; J45.909 Unspecified asthma, uncomplicated
CPT/HCPCS: 29888; 64447; 76942; 81025; C1713; J0690; J1100; J1200; J1885; J2270; J2405; J2704; J2795; J3010; J3490; J7030

== ENCOUNTER → 2023-12-07 13:26 | Outpatient (BNVA) | payer OTHER, SELFPAY | PROVIDERS: PCP Physician Assistant; Visit Provider Nurse Practitioner Women's Health | DX: N97.9 Female infertility, unspecified (principal) | CPT/HCPCS: 76830 ==

== ENCOUNTER → 2023-12-16 15:36 | Outpatient (BNVA) | payer OTHER, SELFPAY | PROVIDERS: PCP Physician Assistant; Visit Provider Nurse Practitioner Women's Health | DX: Z13.29 Encounter for screening for other suspected endocrine disorder (principal); Z31.9 Encounter for procreative management, unspecified; Z13.1 Encounter for screening for diabetes mellitus | CPT/HCPCS: 82306; 83036; 84439; 84443 ==

== ENCOUNTER → 2024-07-05 18:47 | Outpatient (BNVA) | payer BC, SELFPAY | PROVIDERS: PCP Physician Assistant | DX: R39.9 Unspecified symptoms and signs involving the genitourinary system (principal) | CPT/HCPCS: 81000 ==

== ENCOUNTER 2024-07-12 10:51 | Outpatient (CLI) | payer BC, SELFPAY ==
[2024-07-12 10:51] VITALS: RESP 17
[2024-07-12 11:31] VITALS: BP 121/71; PULSE 81
== END 2024-07-12 11:45 | disposition home or self-care (01) ==
LOC: OPOB 10:57 → OBGYN 11:38
PROVIDERS: PCP Physician Assistant; Visit Provider Family Medicine
DX: O46.90 Antepartum hemorrhage, unspecified, unspecified trimester (principal); Z3A.00 Weeks of gestation of pregnancy not specified
CPT/HCPCS: 99211

== ENCOUNTER 2024-07-21 16:49 | Outpatient (CLI) | payer BC, SELFPAY ==
[2024-07-21 17:02] VITALS: BP 113/72; PULSE 88
[2024-07-21 17:22] VITALS: BP 107/60; PULSE 82
== END 2024-07-21 17:40 | disposition home or self-care (01) ==
LOC: OPOB 16:52 → OBGYN 16:56
PROVIDERS: PCP Physician Assistant; Visit Provider Family Medicine
DX: O26.899 Other specified pregnancy related conditions, unspecified trimester (principal); Z3A.00 Weeks of gestation of pregnancy not specified; N89.8 Other specified noninflammatory disorders of vagina
CPT/HCPCS: 83986; 99211

== ENCOUNTER 2024-09-13 01:44 | Outpatient (CLI) | payer BC, SELFPAY ==
[2024-09-13] VITALS (11 sets, daily range): BP systolic 107–128; BP diastolic 57–74; PULSE 68–82; RESP 15; TEMP 35.6; O2SAT 98; BMI 37.5
[2024-09-13] MEDS: ondansetron 2 mg/ML SDV 2 mL 4 MG IVP (03:03)
[2024-09-13] MEDS: lactated ringers 1,000 ML 999 ML IV (03:04)
== END 2024-09-13 04:13 | disposition home or self-care (01) ==
LOC: OPOB 01:50 → OBGYN 01:51
PROVIDERS: PCP Physician Assistant; Visit Provider Family Medicine
DX: O26.899 Other specified pregnancy related conditions, unspecified trimester (principal); Z3A.00 Weeks of gestation of pregnancy not specified; R10.9 Unspecified abdominal pain
CPT/HCPCS: 59025; 96374; 99211; J2405; J7120

== ENCOUNTER 2024-10-11 14:26 | Outpatient (CLI) | payer BC, SELFPAY ==
[2024-10-11 14:44] VITALS: BP 128/70; PULSE 100
[2024-10-11 15:00] VITALS: BP 119/69; PULSE 87
[2024-10-11 15:15] VITALS: BP 111/57; PULSE 89
[2024-10-11 15:21] LABS: Bilirubin Urine Negative (Negative); Blood Urine Negative (Negative); Glucose Urine UA Negative (Normal); Ketones Urine Negative (Negative); Leukocyte Esterase Urine Negative (Negative); Nitrate Urine Negative (Negative); Protein Urine Negative (Negative); Specific Gravity, Urine 1.007 (1.005-1.030); Urine Appearance Clear (CLEAR); Urine Color Yellow (Yellow); Urobilinogen Urine 0.2 mg/dL (Negative)
[2024-10-11 15:23] LABS: Add Urine Microscopic? YES; Bacteria Urine None Seen /hpf; Hyaline Casts Urine 0.81 /lpf; RBC Urine 0-2 /hpf (0-2); Squamous Epithelial Cell Urine 0-5 /hpf (0-5); WBC Urine 0-5 /hpf (0-5)
== END 2024-10-11 15:45 | disposition home or self-care (01) ==
LOC: OPOB 14:36 → OBGYN 14:37
PROVIDERS: PCP Physician Assistant; Visit Provider Family Medicine
DX: O26.899 Other specified pregnancy related conditions, unspecified trimester (principal); Z3A.00 Weeks of gestation of pregnancy not specified; R10.9 Unspecified abdominal pain
CPT/HCPCS: 81001; 87210

== ENCOUNTER 2024-10-26 06:05 | Outpatient (CLI) | payer BC, SELFPAY ==
[2024-10-26 06:05] VITALS: BMI 37.9
[2024-10-26 06:17] VITALS: BP 109/72; PULSE 96
[2024-10-26 06:38] VITALS: BP 112/73; PULSE 85
[2024-10-26 06:58] VITALS: BP 113/56; PULSE 85
== END 2024-10-26 07:20 | disposition home or self-care (01) ==
LOC: OPOB 06:12 → OBGYN 06:13
PROVIDERS: PCP Physician Assistant; Visit Provider Family Medicine
DX: O26.899 Other specified pregnancy related conditions, unspecified trimester (principal); Z3A.00 Weeks of gestation of pregnancy not specified; R10.9 Unspecified abdominal pain
CPT/HCPCS: 59025; 99211

== ENCOUNTER 2024-11-02 19:12 | Outpatient (CLI) | payer BC, SELFPAY ==
[2024-11-02 19:26] VITALS: BP 136/74; PULSE 90; BMI 38.4
[2024-11-02 19:40] VITALS: BP 113/71; PULSE 81
[2024-11-02 19:55] VITALS: BP 123/75; PULSE 96
[2024-11-02 20:03] VITALS: BP 123/75; PULSE 96; RESP 16; TEMP 36.7; O2SAT 100
== END 2024-11-02 20:08 | disposition home or self-care (01) ==
LOC: OPOB 19:15 → OBGYN 19:16
PROVIDERS: PCP Physician Assistant; Visit Provider Family Medicine
DX: O26.899 Other specified pregnancy related conditions, unspecified trimester (principal); Z3A.00 Weeks of gestation of pregnancy not specified; R10.9 Unspecified abdominal pain
CPT/HCPCS: 59025; 99211

== ENCOUNTER 2024-11-10 00:38 | Inpatient (IN) | payer BC, SELFPAY ==
[2024-11-09 22:59] VITALS: BMI 38.9
[2024-11-09 23:12] VITALS: BP 132/86; PULSE 95
[2024-11-09 23:28] VITALS: BP 153/72; PULSE 83
[2024-11-09 23:43] VITALS: BP 123/76; PULSE 78
[2024-11-10] VITALS (111 sets, daily range): BP systolic 96–167; BP diastolic 53–95; PULSE 57–113; RESP 15–20; TEMP 35.7–36.7; O2SAT 92–100
[2024-11-10 00:51] LABS: Nitrazine Paper, PH Positive
[2024-11-10 01:14] LABS: Basophils % 0.1 %; Eosinophils # 0.1 10^3/uL (0.0-0.8); Eosinophils % 0.7 %; Hematocrit 35.7 % (36-47); Mean Corpuscular HGB Conc 33.3 g/dL (30-55); Mean Corpuscular Hemoglobin 29.1 pg (27-33); Mean Corpuscular Volume 87.3 fl (85-98); Mean Platelet Volume 9.7 fL (7.4-10.4); Monocytes % 9.2 %; Neutrophils % 70.3 %; Nucleated Red Blood Cells % 0 %; Platelet Count 244 10^3/cmm (157-399); Red Blood Count 4.09 10^6/uL (3.85-5.65); White Blood Count 10.66 10^3/uL (3.29-11.43)
[2024-11-10] MEDS: dextrose 5%-lactated ringers 1,000 ML 125 ML IV ×2 (01:32→09:16)
[2024-11-10] MEDS: ampicillin 2,000 MG in sodium chloride 0.9% (plus) 50 ML 100 MG IV (01:33)
[2024-11-10] MEDS: ampicillin 1,000 MG in sodium chloride 0.9% (plus) 50 ML 100 MG IV ×4 (05:49→17:30)
--- NOTE | 2024-11-10 08:08 | P.HP_ITS ---
Providers/Chief Complaint 2 Admitting Physician: Manuel Carreon MD Primary Care Provider: Debbie Slaughter Chief Complaint: Poss SROM HPI EVENT PLANNING INTERN History of Present Illness Ro Rossi is a 24 year old G1, P0 female that presented at 39 weeks 5 days to labor and delivery for possible spontaneous rupture of membranes. Patient was found to be positive for rupture. The patient was having occasional contractions but nothing consistent. Patient was fingertip dilation on arrival. The patient had not progressed much overnight and it was 1 cm dilation this morning. Patient has had an unremarkable with no complications during her care. The patient had adequate care. The patient is GBS positive. Present Details : 1 Para: 0 Labs Rubella: Immune RPR: Negative GBS: Positive Review of Systems 2 General: Reports: 10 or more systems reviewed and unremarkable except in HPI and below Medications/Allergies Home Medications ?Medication ?Instructions ?Recorded ?Confirmed ?Last Taken ?Type albuterol sulfate 90 mcg/actuation 2 puff inhalation Q 6H PRN 11/19/21 10/24/24 11/28/21 History aerosol inhaler (Ventolin HFA) Shortness Of Breath Or Wheezing Unisom SleepGels 25 mg PO 1XD sleep 09/13/24 10/24/24 10/10/24 History vit no.95-ferrous 1 tab PO DAILY 09/13/2410/10/24 History fumarate 28 mg-folic acid 800 mcg tablet () vitamin B complex DIRECTED PRN Nausea And V omiting 09/13/24 10/24/24 10/10/24 History Zofran 10/11/24 10/24/24 Unknown H istory Allergies Allergy/AdvReac Type Severity Reaction Status Date / Time hydrocodone Allergy Intermediate ADV-Weaknes Verified 10/24/24 07:49 s codeine Allergy ALGY-Hives Verified 10/24/24 07:49 oxycodone Allergy ALGY-Hives Verified 11/10/24 00:42 [facility] EVENT PLANNING INTERN 2 [facility]: Medical History Irritable bowel syndrome (IBS) (~02/2022) more constipation; managed with medication Asthma Diagnosed as a child. Mild intermittent and uses an albuterol inhaler as needed. 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 No pertinent past medical history Denies diabetes, hypertension, seizures, DVT/PE PCP: Lilibeth Slaughter Surgical History Hx of anterior cruciate ligament surgery (~02/26/22) S/P wisdom tooth extraction Family History Denies family history of Colon cancer Ovarian cancer Heart disease Hyperlipidemia Breast cancer Hypertension Uterine cancer Thyroid disease Stroke Social History Smoking and tobacco/nicotine status: never used tobacco/nicotine History History History 2 0 Term Miscarriages/Ectopic Living Children Vitals/I&O/Wt Last Vital Signs Temp 96.6 F L 11/10/24 05:50 Pulse 82 11/10/24 07:26 BP 96/55 11/10/24 07:26 O2 Del Method Room Air 11/09/24 23:55 Weight last 48 hrs Weight 96.615 kg Physical Exam 2 Const: COMMON NORMALS: no acute distress and patient oriented x3 Resp: COMMON NORMALS: normal respiratory effort and No retractions Cardio: COMMON NORMALS: no JVD, regular rate and regular rhythm GI: OTHER: Gravid uterus Extremity: COMMON NORMALS: no clubbing, cyanosis or edema Neuro: COMMON NORMALS: moves all extremities Psych: COMMON NORMALS: mental status grossly normal Skin: COMMON NORMALS: no rashes or lesions noted Data 11/10/24 01:05 Results Labs OB ([facility]): 2 Blood Type A Positive 11/10/24 Antibody Screen Negative 11/10/24 Hct 35.7 % (36-47) L 11/10/24 Hgb 11.90 g/dL (11.27-16.99) 11/10/24 Rho(D) Type Rh positive 11/10/24 Plt Count 244 10^3/cmm (157-399) 11/10/24 TSH 3.04 uIU/mL (0.27-4.20) 12/16/23 Free T4 1.15 ng/dL (0.82-1.77) 12/16/23 Hemoglobin A1c 4.8 % (4.0-6.0) 12/16/23 A&P Assessment and plan (1) Term : Patient did not make significant cervical change overnight. Recommend that we start augmenting labor with Pitocin. Continue routine labor management. (2) 39 weeks gestation of : (3) Group B Streptococcus carrier state affecting : Patient has been started on ampicillin and she will have adequate dosage prior to delivery. PDMP PDMP Reviewed: Not Reviewed Attestations 2 Medical Necessity Statement*: Patient admitted for labor. Anticipate at least 1 midnight stay. Coding Level of Care Code Acute Code for Chg Fwd Diagnoses Term Z34.90 39 weeks gestation of Z3A.39 Group B Streptococcus carrier state affecting O99.820
[2024-11-10] MEDS: oxytocin 30 UNIT/500 ML BAG IV (08:15)
[2024-11-10] MEDS: fentaNYL 50 mcg/mL INJ 2mL IVP (10:05)
[2024-11-10] MEDS: lactated ringers 1,000 ML 999 ML IV ×2 (10:08→11:30)
[2024-11-10] MEDS: ROPivacaine syringe 100 MG/50 ML SYRINGE 10 MG EPIDURAL ×3 (11:29→17:31)
--- NOTE | 2024-11-10 11:31 | ANES.PREANE2 ---
Pre-Anesthetic Assessment Height/Weight: Height 5 ft 2 in Weight 213 lb Temp Pulse Resp BP Pulse Ox O2 Del Method 97.3 F L 69 17 118/62 99 Room Air 11/10/24 10:11 11/10/24 11:29 11/10/24 10:05 11/10/24 11:29 11/10/24 11:28 11/09/24 23:55 Preop Diagnosis: active labor Was Beta Lucien taken within 24 hours: N/A Was Clonidine taken within 24 hours: N/A Social No alcohol and No tobacco Exam alert, oriented x 3, clear to auscultation bilaterally and regular rate & rhythm Airway Submandibular: within normal limits Cervical ROM: within normal limits Mallampati: Class II Dentition: full Anesthetic Plan ASA status: 2 Anesthesia: Regional (specify below) Other: G1, P0 here for active labor No issues during Labs reviewed acceptable for procedure Patient consents for epidural placement Medications/Allergies Home Medications ?Medication ?Instructions ?Recorded ?Confirmed ?Last Taken ?Type albuterol sulfate 90 mcg/actuation 2 puff inhalation Q6H PRN 11/19/21 11/10/24 11/28/21 History aerosol inhaler (Ventolin HFA) Shortness Of Breath Or Wheezing Unisom SleepGels 25 mg PO 1XD sleep 09/13/24 11/10/24 10/10/24 History vit no.95-ferrous 1 tab PO DAILY 09/13/24 11/10/24 10/10/24 History fumarate 28 mg-folic acid 800 mcg tablet () vitamin B complex 1 tab PO DIRECTED PRN Nausea 09/13/24 11/10/24 10/10/24 History And Vomiting Zofran 4 mg PO Q6H PRN Vomiting 10/11/24 11/10/24 Unknown History Allergies Allergy/AdvReac Type Severity Reaction Status Date / Time hydrocodone Allergy Intermediate ADV-Weaknes Verified 10/24/24 07:49 s codeine Allergy ALGY-Hives Verified 10/24/24 07:49 oxycodone Allergy ALGY-Hives Verified 11/10/24 00:42 Current Medications Generic Name Dose Route Start Last Admin Trade Name Freq PRN Reason Stop Dose Admin Fentanyl 25 - 100 mcg 11/10/24 00:46 11/10/24 10:05 Fentanyl 50 Mcg/Ml Inj 2ml IVP 25 mcg Q1H PRN Administration SEVERE PAIN Ampicillin Sodium 1,000 mg/ 50 mls @ 100 mls/hr 11/10/24 04:45 11/10/24 09:16 Sodium Chloride IV 100 mls/hr Q4H HALLIE Administration Protocol Dextrose/Lactated Ringer's 1,000 mls @ 125 mls/hr 11/10/24 01:00 11/10/24 10:09 Dextrose 5%-Lactated Ringers IV 0 mls/hr .Q8H HALLIE Infusion Oxytocin 30 unit in 500 mls @ 1 mls/hr 11/10/24 08:00 11/10/24 09:30 Pitocin IV 6 milliunit/min .Q24H HALLIE 6 mls/hr Titration Protocol 1 MILLIUNIT/MIN Lactated Ringer's 1,000 mls @ 999 mls/hr 11/10/24 09:52 11/10/24 11:30 Lactated Ringers IV 999 mls/hr .Q1H1M PRN Administration See label comments Ropivacaine 100 mg in 50 mls @ 10 mls/hr 11/10/24 10:00 11/10/24 11:29 Naropin Syringe EPIDURAL 10 mls/hr .Q5H HALLIE Administration PFSH Anesthesia Medical History Irritable bowel syndrome (IBS) (~02/2022) more constipation; managed with medication Asthma Diagnosed as a child. Mild intermittent and uses an albuterol inhaler as needed. 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 No pertinent past medical history Denies diabetes, hypertension, seizures, DVT/PE PCP: Lilibeth Slaughter Surgical History Hx of anterior cruciate ligament surgery (~02/26/22) S/P wisdom tooth extraction Family History Denies family history of Colon cancer Ovarian cancer Heart disease Hyperlipidemia Breast cancer Hypertension Uterine cancer Thyroid disease Stroke Social History Smoking and tobacco/nicotine status: never used tobacco/nicotine Female Reproductive History : 1 Data Anesthesia 11/10/24 01:05 Short CBC 02/07/25 Range/Units 01:05 WBC 10.66 (3.29-11.43) 10^3/uL Hgb 11.90 (11.27-16.99) g/dL Hct 35.7 L (36-47) % MCV 87.3 (85-98) fl Plt Count 244 (157-399) 10^3/cmm Neut % (Auto) 70.3 % Neut # (Auto) 7.50 (1.8-7.7) 10^3/uL Blood Bank 11/10/24 01:05 Blood Type A Positive Rho(D) Type Rh positive Antibody Screen Negative Cardiac Studies: No Data to Display
--- NOTE | 2024-11-10 11:32 | P.ANES_ITS ---
Anesthesia Procedures Procedure/Date: 11/10/24 Epidural: Time Out Performed: Yes Consents Signed: Procedure Consent Consent: requested by attending/covering physician and from patient Lumbar Level: L3-L4 Epidural position: sitting Epidural procedure: sterile prep of area, 1% lidocaine to numb the area, 18 g needle, negative for paresthesia p assed, neg for paresthesia, test dose given, 1.5% xylocaine 1:200k epi, 0.2% Ropivacaine bolus ml, placed PCEA, no systemic response, sterile dressing applied, L.U.D. no apparent complications and 0.2% Ropiavacaine @ mls/hr Additional Comments: Ropivacaine set at 10 mL/h
[2024-11-10] MEDS: ondansetron 2 mg/ML SDV 2 mL 4 MG IVP (13:58)
[2024-11-10] MEDS: hyDROXYzine 25 mg Capsule 50 MG PO (17:31)
[2024-11-10] MEDS: metoclopramide 5 mg/mL SDV 2 mL 10 MG IV (17:31)
--- NOTE | 2024-11-10 23:12 | PM.DELIVERY ---
Delivery Note: Date of delivery: November 10, 2024 Pre-delivery diagnoses: Term intrauterine Post-delivery diagnoses: Same, viable male Procedure: Spontaneous vaginal delivery Delivering Physician: Dr. Manuel Carreon Estimated blood loss (mL): 300 Pre-Delivery Course: This is a 24-year-old G1, P1 that presented with spontaneous rupture membranes. After labor was augmented the patient did progressed to completion as expected. Delivery: Once patient was completely dilated the patient was placed in the normal lithotomy position and started pushing with contractions. After approximately 2-1/2 hours of pushing the patient delivered 's head without difficulty. Mild shoulder dystocia was noted and with downward traction the anterior shoulder was delivered followed by infant's body. was placed on to mother's abdomen and after delay the cord was clamped and cut. Zuhair was delivered soon after. Review of the perineum showed a small second-degree tear that was repaired with 2-0 Vicryl. During the procedure the uterus was firm and bleeding was appropriate. Post-Delivery Status: Stable History History History 0 Term Miscarriages/Ectopic Living Children A&P Assessment and plan (1) Spontaneous vaginal delivery: Proceed with routine care. PDMP PDMP Reviewed: Not Reviewed Coding Level of Care Code Acute Code for Chg Fwd Diagnoses Spontaneous vaginal delivery O80
[2024-11-10] MEDS: oxytocin 30 UNIT/500 ML BAG 600 UNIT IV (23:40)
[2024-11-11] VITALS (12 sets, daily range): BP systolic 108–135; BP diastolic 57–90; PULSE 85–109; RESP 16–18; TEMP 36.5–36.8; O2SAT 97–98
[2024-11-11] MEDS: miSOPROStol 200 mcg Tablet 800 MCG PR (00:16)
[2024-11-11] MEDS: lanolin oint 7 gm 1 APPLIC TOPICAL (03:05)
[2024-11-11] MEDS: benzocaine-menthol 78 gm Canister 1 SPRAY TOPICAL (03:05)
[2024-11-11] MEDS: PRENATAL VIT NO.130/IRON/FOLIC 1 EACH TABLET PO (08:55)
[2024-11-11] MEDS: ibuprofen 800 mg tablet PO ×2 (08:55→21:22)
[2024-11-11] MEDS: docusate sodium 100 mg Capsule PO ×2 (08:55→21:22)
[2024-11-11 09:54] LABS: Hematocrit 29.1 % (36-47); Mean Corpuscular HGB Conc 34.4 g/dL (30-55); Mean Corpuscular Hemoglobin 29.7 pg (27-33); Mean Corpuscular Volume 86.4 fl (85-98); Mean Platelet Volume 9.6 fL (7.4-10.4); Platelet Count 227 10^3/cmm (157-399); Red Blood Count 3.37 10^6/uL (3.85-5.65); Red Cell Distribution Width 12.9 % (12.1-15.1); White Blood Count 17.93 10^3/uL (3.29-11.43)
--- NOTE | 2024-11-11 10:48 | P.PN_ITS ---
SALES DEVELOPMENT MANAGER Subjective 2 Subjective: Interval history: Is a 24-year-old G1, P1 that is status post 1 day from spontaneous vaginal delivery. Patient is not having any complications. The patient denies any concerns today. There are no nursing concerns. Vital signs been stable. Labor: Station: +2 Amniotic Membrane Status: Ruptured Monitor Mode: External Contraction Pattern: Regular Status: Category I Vitals/I&O/Wt Last Vital Signs Temp 98.3 F 11/11/24 04:45 Pulse 90 11/11/24 04:45 Resp 16 11/11/24 04:45 BP 108/63 11/11/24 04:45 Pulse Ox 100 11/10/24 12:18 O2 Del Method Room Air 11/09/24 23:55 11/10/24 11/11/24 11/11/24 22:59 06:59 14:59 Intake Total 989.583 / 4263.667 500 / 4763.667 Output Total 800 / 800 Balance 989.583 / 4263.667 -300 / 3963.667 Weight last 48 hrs Weight 96.615 kg Physical Exam 2 Const: COMMON NORMALS: no acute distress and patient oriented x3 Neck/C-Spine: COMMON NORMALS: no JVD Resp: COMMON NORMALS: normal respiratory effort and No retractions Cardio: COMMON NORMALS: no JVD, regular rate and regular rhythm RATE: r egular rate RHYTHM: regular rhythm Extremity: COMMON NORMALS: no clubbing, cyanosis or edema Neuro: COMMON NORMALS: patient oriented x3 and moves all extremities Psych: COMMON NORMALS: mental status grossly normal Skin: COMMON NORMALS: no rashes or lesions noted GENERAL SKIN EXAM: no rashes or lesions noted Urinary Catheter Management: Salcedo Latex: Cath Placed During This Visit: yes Reason for Continuing Indwelling Catheter: Acute Urinary Retention or Obstruction Urinary Catheter Date of Insertion: 11/10/24 Urinary Catheter Time of Insertion: 12:20 Data 11/11/24 09:45 A&P Assessment and plan (1) Spontaneous vaginal delivery: (2) care following vaginal delivery: Routine care. PDMP PDMP Reviewed: Not Reviewed Attestations 2 Medical Necessity Statement*: Patient admitted for labor. Anticipate at least 2 midnight stay. Coding Level of Care Code Acute Code for Chg Fwd Diagnoses Spontaneous vaginal delivery O80 care following vaginal delivery Z39.2
--- NOTE | 2024-11-11 17:03 | ANE.PACU2 ---
Inpatient post-anesthesia follow up: Airway intact: Yes Vital signs: Temperature 98.0 F Pulse Rate 81 Respiratory Rate 16 Blood Pressure 113/77 Pulse Oximetry 98 Oxygen Delivery Me thod Room Air Oxygen Flow Rate Fraction of Inspir ed Oxygen Hydration adequate: Yes Nausea and vomiting: No Pain level: 1 Mental status: Baseline Epidural Start/End: Epidural Start Date: 11/10/24 Epidural Start Time: 11:13 Epidural End Date: 11/11/24 Epidural End Time: 03:12
[2024-11-12 04:04] VITALS: BP 119/79; PULSE 81; RESP 14; TEMP 36.4; O2SAT 98
[2024-11-12] MEDS: ibuprofen 800 mg tablet PO (08:58)
[2024-11-12] MEDS: PRENATAL VIT NO.130/IRON/FOLIC 1 EACH TABLET PO (08:59)
[2024-11-12] MEDS: docusate sodium 100 mg Capsule PO (08:59)
--- NOTE | 2024-11-12 09:41 | PM.OBGYDC ---
Discharge Providers COMMUNICATIONS EQUIPMENT SUPERVISOR Date of Admission: 11/10/24 00:38 Date of Discharge: 11/12/24 Attending Provider at Admission: Manuel Carreon MD Attending Provider at Discharge: Manuel Carreon MD Primary Care Provider: Debbie Slaughter Diagnoses at Discharge Discharge Diagnosis (1) Spontaneous vaginal delivery: Status: Acute (2) care following vaginal delivery: Status: Acute Reason for Visit Reason for Visit: Poss [facility] Hospital Course Hospital Course This is a 24-year-old G1, P1 that presented at 39 weeks 5 days with rupture membranes. Patient initially did not have significant cervical change or increase in contraction pattern, so labor was augmented with Pitocin. Patient had progressed as expected to completion. Once completely dilated the patient pushed for 2-1/2 hours to deliver a viable male without difficulty. Patient had no complications. Bleeding has been appropriate. Bleeding has been well-controlled. Vital signs have been stable. Patient has not had any signs of infection. Information Peripartum Data: Infant Delivery Method: Vaginal Laceration description: Perineal - 2nd Degree complications: none Physical Exam Const: COMMON NORMALS: no acute distress and patient oriented x3 Neck/C-Spine: COMMON NORMALS: no JVD Resp: COMMON NORMALS: normal respiratory effort and No retractions Cardio: COMMON NORMALS: no JVD, regular rate and regular rhythm RATE: regular rate RHYTHM: regular rhythm GI: OTHER: Uterus is firm and below umbilicus Extremity: COMMON NORMALS: no clubbing, cyanosis or edema Neuro: COMMON NORMALS: patient oriented x3 and moves all extremities Psych: COMMON NORMALS: mental status grossly normal Skin: COMMON NORMALS: no rashes or lesions noted GENERAL SKIN EXAM: no rashes or lesions noted Urinary Catheter Management: Salcedo Latex: Cath Placed During This Visit: yes Reason for Continuing Indwelling Catheter: Acute Urinary Retention or Obstruction Urinary Catheter Date of Insertion: 11/10/24 Urinary Catheter Time of Insertion: 12:20 History History History 0 Term Miscarriages/Ectopic Living Children Discharge Data Studies Completed and Pending Laboratory Results WBC 17.93 10^3/uL (3.29-11.43) H 11/11/24 09:45 RBC 3.37 10^6/uL (3.85-5.65) L 11/11/24 09:45 Hgb 10.00 g/dL (11.27-16.99) L 11/11/24 09:45 Hct 29.1 % (36-47) L 11/11/24 09:45 MCV 86.4 fl (85-98) 11/11/24 09:45 MCH 29.7 pg (27-33) 11/11/24 09:45 MCHC 34.4 g/dL (30-55) 11/11/24 09:45 RDW 12.9 % (12.1-15.1) 11/11/24 09:45 Plt Count 227 10^3/cmm (157-399) 11/11/24 09:45 MPV 9.6 fL (7.4-10.4) 11/11/24 09:45 Neut % (Auto) 70.3 % 11/10/24 01:05 Lymph % (Auto) 19.0 % 11/10/24 01:05 [place] % (Auto) 9.2 % 11/10/24 01:05 Eos % (Auto) 0.7 % 11/10/24 01:05 Baso % (Auto) 0.1 % 11/10/24 01:05 Neut # (Auto) 7.50 10^3/uL (1.8-7.7) 11/10/24 01:05 Lymph # (Auto) 2.0 10^3/uL (0.8-4.8) 11/10/24 01:05 [place] # (Auto) 1.0 10^3/uL (0.2-0.9) H 11/10/24 01:05 Eos # (Auto) 0.1 10^3/uL (0.0-0.8) 11/10/24 01:05 Baso # (Auto) 0.0 10^3/uL (0.0-0.1) 11/10/24 01:05 Nucleated RBC % (auto) 0 % 11/10/24 01:05 Nucleated RBCs # 0.0 /100WBC 11/10/24 01:05 Fluid pH (paper) Positive H 11/09/24 23:15 Blood Type A Positive 11/10/24 01:05 Rho(D) Type Rh positive 11/10/24 01:05 Antibody Screen Negative 11/10/24 01:05 Vitals Last Vital Signs Temp 97.6 F 11/12/24 04:04 Pulse 81 11/12/24 04:04 Resp 14 11/12/24 04:04 BP 119/79 11/12/24 04:04 Pulse Ox 98 11/12/24 04:04 O2 Del Method Room Air 11/12/24 04:04 Results Labs OB ([facility]): Blood Type A Positive 11/10/24 Antibody Screen Negative 11/10/24 Hct 29.1 % (36-47) L 11/11/24 Hgb 10.00 g/dL (11.27-16.99) L 11/11/24 Rho(D) Type Rh positive 11/10/24 Plt Count 227 10^3/cmm (157-399) 11/11/24 TSH 3.04 uIU/mL (0.27-4.20) 12/16/23 Free T4 1.15 ng/dL (0.82-1.77) 12/16/23 Hemoglobin A1c 4.8 % (4.0-6.0) 12/16/23 Discharge Plan Discharge Patient Disposition: Home Condition: Stable Prescriptions: Continued albuterol sulfate [Ventolin HFA] 90 mcg/actuation HFA aerosol inhaler 2 puff inhalation Q6H PRN (Reason: Shortness Of Breath Or Wheezing) PNV cmb#95-ferrous fumarate-FA [] 28 mg iron- 800 mcg Tablet 1 tab PO DAILY Unisom SleepGels 25 mg 25 mg PO 1XD vitamin B complex 1 tab PO DIRECTED PRN (Reason: Nausea And Vomiting) Zofran 4 mg PO Q6H PRN (Reason: Vomiting) Discharge Orders: Discharge Order (Routine); Ordered 11/12/24 Ordered By: Manuel Carreon Referrals: Manuel Carreon MD [Physician] - Discharge Diet: Usual diet Discharge Activity: Limit activity as instructed Patient Instructions: Depression (DC), Opioid Safety (DC), Preeclampsia and Eclampsia After Delivery (GEN), Hemorrhage (DC), OB Discharge Report, OB Food/Drug Interaction Guide, OB Care at Home, Opioid Safety, OB Vaginal Deliveries, Abnormal Bleeding Discharge Attestations COMMUNICATIONS EQUIPMENT SUPERVISOR Time Spent in Discharge Care*: less than 30 min Coding Level of Care Code Acute Code for Chg Fwd Diagnoses Spontaneous vaginal delivery O80 care following vaginal delivery Z39.2
[2024-11-12 12:00] VITALS: BP 113/77; PULSE 81; RESP 16; TEMP 36.7
== END 2024-11-12 12:13 | disposition home or self-care (01) | DRG 807 ==
LOC: OPOB 00:38 → OBGYN 00:38
PROVIDERS: Admitting Provider Family Medicine; PCP Physician Assistant; Visit Provider Family Medicine
DX: O99.824 Streptococcus B carrier state complicating childbirth (principal); Z37.0 Single live birth; O70.1 Second degree perineal laceration during delivery; Z3A.39 39 weeks gestation of pregnancy; O66.0 Obstructed labor due to shoulder dystocia
CPT/HCPCS: 36415; 51702; 59025; 59409; 83986; 85025; 85027; 86850; 86900; 96374; 99211; J0290; J2405; J2590; J2765; J2795; J3010; J7120; J7121

== ENCOUNTER 2024-12-20 15:28 | Day surgery (SDC) | payer BC, SELFPAY ==
[2024-12-20] VITALS (15 sets, daily range): BP systolic 100–124; BP diastolic 62–75; PULSE 69–98; RESP 14–19; TEMP 36.2–36.9; O2SAT 95–100; BMI 31.1
--- NOTE | 2024-12-20 15:52 | W.ED.FEMALGU ---
HPI - Female Genitourinary General: Chief complaint: Vaginal Bleeding Stated complaint: sent by Lauri for DnC Time Seen by Provider: 12/20/24 15:42 Source: patient Mode of arrival: ambulatory Limitations: no limitations History of Present Illness: This patient presents to the emergency department at the direction of her delivering family physician Dr. Estrada. She delivered on 10 November of this year with with no significant complication she did have a small perineal tear but otherwise had an unremarkable course. She is continue to have vaginal bleeding since her delivery. She is was seen by Dr. Carreon in the clinic yesterday and he examined her and found her to have no other source of bleeding other than her cervical os. He did an ultrasound at that time which showed retained products in her lower uterine segment. He then contacted the edge bander operator clinic on-call spoke with a nurse practitioner there who spoke with Dr. Anthony who directed her to come to the emergency department. The patient reiterates her symptoms of daily vaginal bleeding without fever or other symptoms. MD elicited complaint: vaginal bleeding Associated symptoms: Reports vaginal bleeding; Deny abdominal pain, headache(s) or nausea Related Data Home Medications ?Medication ?Instructions ?Recorded ?Confirmed bupropion HCl 150 mg 24 hr tablet, 150 mg PO DAILY 12/20/24 12/20/24 extended release buspirone 10 mg tablet 10 mg PO BID 12/20/24 12/20/24 escitalopram oxalate 10 mg tablet 10 mg PO DAILY 12/20/24 12/20/24 sertraline 25 mg tablet 25 mg PO DAILY 12/20/24 12/20/24 Allergies Allergy/AdvReac Type Severity Reaction Status Date / Time hydrocodone Allergy Intermediate ADV-Weaknes Verified 10/24/24 07:49 s codeine Allergy ALGY-Hives Verified 10/24/24 07:49 oxycodone Allergy ALGY-Hives Verified 11/10/24 00:42 Review of Systems Const: Denies: fever(s) or chills ENMT: Denies: throat pain, odynophagia, nasal discharge or nasal congestion Card: Denies: chest pain or palpitations Resp: Denies: dyspnea, productive cough or non-productive cough GI: Denies: abdominal pain, nausea, vomiting or diarrhea : Reports: vaginal bleeding Musc: Denies: neck pain, back pain, extremity pain or extremity swelling Skin/Breast: Denies: rash or pruritus Neuro: Denies: headache(s) or numbness in extremities PFSH ED PFSH: Medical History Spontaneous vaginal delivery Irritable bowel syndrome (IBS) (~02/2022) more constipation; managed with medication Asthma Diagnosed as a child. Mild intermittent and uses an albuterol inhaler as needed. ----> Does not have a sap senior developer or primary care doctor and usually gets refills through urgent care. No pertinent past medical history Denies diabetes, hypertension, seizures, DVT/PE PCP: Lilibeth Slaughter Surgical History Hx of anterior cruciate ligament surgery (~02/26/22) S/P wisdom tooth extraction Family History Denies family history of Colon cancer Ovarian cancer Heart disease Hyperlipidemia Breast cancer Hypertension Uterine cancer Thyroid disease Stroke Social History Smoking and tobacco/nicotine status: never used tobacco/nicotine Physical Exam Narrative: EXAM NARRATIVE: She is alert no acute distress. Const: COMMON NORMALS: no acute distress, average body habitus and patient oriented x3 GENERAL APPEARANCE: cooperative and comfortable HENMT: COMMON NORMALS: Normal nasal mucous membranes and turbinates present and moist oral mucous membranes NOSE: Normal nasal mucous membranes and turbinates present Eye: COMMON NORMALS: Equal, round and reactive pupils present and EOMs intact bilaterally PUPIL: Yes Equal, round and reactive pupils present Neck/C-Spine: COMMON NORMALS: full ROM Resp: COMMON NORMALS: normal respiratory effort and No use of accessory muscles EFFORT & INSPECTION: Yes able to speak in complete sentences Cardio: COMMON NORMALS: regular rate, regular rhythm and Peripheral pulses 2+ throughout RATE: regular rate RHYTHM: regular rhythm PERIPHERAL PULSES: Peripheral pulses 2+ throughout GI: COMMON NORMALS: Normal to inspection, nondistended, normoactive bowel sounds present, Soft to palpation and non-tender PALPATION: Yes Soft to palpation : COMMON NORMALS: Yes normal external appearance and Yes normal appearance of the vagina SPECULUM EXAM - VAGINA: No laceration and Yes vaginal bleeding SPECULUM EXAM - CERVIX: Yes Cervical bleeding OB/EXTERNAL & SPECULUM: vaginal bleeding Back/Pelvis: COMMON NORMALS: thoracic and lumbar spine normal to inspection, no thoracic nor lumbar tenderness and thoraco-lumbar ROM normal Extremity: COMMON NORMALS: normal to inspection, full ROM, no calf tenderness and no pedal edema Neuro: COMMON NORMALS: patient oriented x3, moves all extremities, no focal motor deficits and no sensory deficits noted Psych: COMMON NORMALS: mental status grossly normal Skin: COMMON NORMALS: no rashes or lesions noted, no wounds and no petechiae GENERAL SKIN EXAM: no rashes or lesions noted Course Consultations: Consultation #1: Discussed with Dr. Salomon who voiced that he had not directly spoken with with this patient's physician noted been an intermediary through nurse practitioner. Therefore he requested the patient come to the ER. Independently spoke with Dr. Estrada who also affirmed that he had seen the patient yesterday examined her had performed an ultrasound. He states that she was not having any bleeding from a vaginal laceration, cervical laceration, other source of bleeding. He did an ultrasound which showed retained products and therefore had arranged her to be seen by OB for potential deep dilation and curettage. Time: 16:15 Consultation #2: Discussed with Dr. Anthony who plans to take her on-call to the OR for a evacuation of her uterus. Time: 16:49 Vital Signs: Vital signs: Vital Signs Temperature 97.5 F L 12/20/24 15:32 Pulse Rate 70 12/20/24 17:00 Respiratory Rate 17 12/20/24 15:32 Blood Pressure 100/74 12/20/24 17:00 Pulse Oximetry 98 12/20/24 17:00 Oxygen Delivery Me thod Room Air 12/20/24 17:00 MDM - Female Medical Decision Making Patient was sent to the ER as noted in the HPI. She had delivery of spontaneous vaginal delivery on 10 November and has continued to have daily vaginal bleeding. No other associated symptoms. Initially seen by her family practice edge bander operator and then referred to the ER after consulting with OB. The patient has no evidence of historical coagulopathy and clinical exam today did not reveal any other signs of vaginal bleeding such as sidewall laceration, cervical laceration etc. An ultrasound completed at [facility] today did show evidence of retained products. Patient is hemodynamically stable and consultation was obtained with edge bander operator who agreed to see the patient and anticipated taking her to the operating room for evacuation of her uterus. Her blood type is ARhpositive. HCG<1. Medical Records I reviewed the patient's medical records. The patient had a pelvic ultrasound completed at [facility] today. I briefly reviewed those images and it appears to be retained debris in the lower uterine segment. The images were not formally interpreted at the time I viewed them but they are being sent out to Where Was it Filmed for interpretation. Lab Data I reviewed the patient's lab results. 12/20/24 16:11 12/20/24 16:11 Laboratory Results WBC 8.25 10^3/uL (3.29-11.43) 12/20/24 16:11 RBC 4.69 10^6/uL (3.85-5.65) 12/20/24 16:11 Hgb 12.80 g/dL (11.27-16.99) 12/20/24 16:11 Hct 40.0 % (36-47) 12/20/24 16:11 MCV 85.3 fl (85-98) 12/20/24 16:11 MCH 27.3 pg (27-33) 12/20/24 16:11 MCHC 32.0 g/dL (30-55) 12/20/24 16:11 RDW 12.4 % (12.1-15.1) 12/20/24 16:11 Plt Count 337 10^3/cmm (157-399) 12/20/24 16:11 MPV 9.6 fL (7.4-10.4) 12/20/24 16:11 Neut % (Auto) 65.0 % 12/20/24 16:11 Lymph % (Auto) 27.9 % 12/20/24 16:11 [place] % (Auto) 6.2 % 12/20/24 16:11 Eos % (Auto) 0.6 % 12/20/24 16:11 Baso % (Auto) 0.2 % 12/20/24 16:11 Neut # (Auto) 5.36 10^3/uL (1.8-7.7) 12/20/24 16:11 Lymph # (Auto) 2.3 10^3/uL (0.8-4.8) 12/20/24 16:11 [place] # (Auto) 0.5 10^3/uL (0.2-0.9) 12/20/24 16:11 Eos # (Auto) 0.1 10^3/uL (0.0-0.8) 12/20/24 16:11 Baso # (Auto) 0.0 10^3/uL (0.0-0.1) 12/20/24 16:11 Nucleated RBC % (auto) 0 % 12/20/24 16:11 Nucleated RBCs # 0.0 /100WBC 12/20/24 16:11 PT 12.70 SECONDS (12.1-14.9) 12/20/24 16:11 INR 0.89 (0.8-1.2) 12/20/24 16:11 Sodium 139 mmol/L (136-145) 12/20/24 16:11 Potassium 3.8 mmol/L (3.5-5.1) 12/20/24 16:11 Chloride 103 mmol/L (98-107) 12/20/24 16:11 Carbon Dioxide 22 mmol/L (22-29) 12/20/24 16:11 Anion Gap 17.8 (5-19) 12/20/24 16:11 BUN 11 mg/dL (6-20) 12/20/24 16:11 Creatinine 0.7 mg/dL (0.5-0.9) 12/20/24 16:11 GFR Calculation 101.1 mL/min (90-130) 12/20/24 16:11 Glucose 78 mg/dL (65-115) 12/20/24 16:11 Calculated Osmolality 286 mOsm/kg (285-295) 12/20/24 16:11 Calcium 9.6 mg/dL (8.5-10.5) 12/20/24 16:11 Ser , Semi-Qnt < 1.00 mIU/mL 12/20/24 16:11 No radiology studies performed this visit Discharge Plan Discharge Patient Disposition: Placed in Observation Clinical Impression: Vaginal bleeding, Retained products of conception Coding Level of Care Code ED It Architect for Chg Oliver
--- NOTE | 2024-12-20 15:56 | PC.NURSE ---
PT reports her heartburn is gone after receiving the IV Pepcid.
[2024-12-20 16:29] LABS: Basophils % 0.2 %; Eosinophils # 0.1 10^3/uL (0.0-0.8); Eosinophils % 0.6 %; Lymphocytes # 2.3 10^3/uL (0.8-4.8); Lymphocytes % 27.9 %; Mean Corpuscular Hemoglobin 27.3 pg (27-33); Mean Corpuscular Volume 85.3 fl (85-98); Mean Platelet Volume 9.6 fL (7.4-10.4); Monocytes # 0.5 10^3/uL (0.2-0.9); Monocytes % 6.2 %; Neutrophils # 5.36 10^3/uL (1.8-7.7); Nucleated Red Blood Cells % 0 %; Platelet Count 337 10^3/cmm (157-399); Red Blood Count 4.69 10^6/uL (3.85-5.65); Red Cell Distribution Width 12.4 % (12.1-15.1); White Blood Count 8.25 10^3/uL (3.29-11.43)
[2024-12-20 16:43] LABS: INR 0.89 (0.8-1.2)
[2024-12-20 17:06] LABS: HCG Quantitative < 1.00 mIU/mL
--- NOTE | 2024-12-20 17:11 | PC.NURSE ---
pt changed into gown, ID band on, allergy band on, pt updated in time frame for OR.
[2024-12-20 17:17] LABS: Anion Gap 17.8 (5-19); Blood Urea Nitrogen 11 mg/dL (6-20); Calcium 9.6 mg/dL (8.5-10.5); Carbon Dioxide 22 mmol/L (22-29); Chloride 103 mmol/L (98-107); Glomerular Filtration Rate 101.1 mL/min (90-130); Glucose 78 mg/dL (65-115); Osmolality Calculated 286 mOsm/kg (285-295); Potassium 3.8 mmol/L (3.5-5.1); Sodium 139 mmol/L (136-145)
--- NOTE | 2024-12-20 17:38 | ANES.PREANE2 ---
Pre-Anesthetic Assessment Height/Weight: Height 1.57 m Weight 77.111 kg Temp Pulse Resp BP Pulse Ox O2 Del Method 97.5 F L 70 17 100/74 98 Room Air 12/20/24 15:32 12/20/24 17:00 12/20/24 15:32 12/20/24 17:00 12/20/24 17:00 12/20/24 17:00 Operation Date: 12/20/24 15:55 Proposed Procedures p Dilation And Curettage (D&C)(Not Applicable) - Andrez Salomon MD Familial anesthetic complications: None Was Beta Lucien taken within 24 hours: N/A Was Clonidine taken within 24 hours: N/A Last intake: 4 chicken nuggets before noon, no other intake for the day Social No alcohol and No tobacco Exam alert, oriented x 3, clear to auscultation bilaterally and regular rate & rhythm Anesthetic Plan ASA status: 1E Anesthesia: General Risk of > 500 ml blood loss (7ml/kg in children): No Medications/Allergies Home Medications ?Medication ?Instructions ?Recorded ?Confirmed ?Last Taken ?Type bupropion HCl 150 mg 24 hr tablet, 150 mg PO DAILY 12/20/24 12/20/24 Unknown History extended release buspirone 10 mg tablet 10 mg PO BID 12/20/24 12/20/24 Unknown History escitalopram oxalate 10 mg tablet 10 mg PO DAILY 12/20/24 12/20/24 Unknown History sertraline 25 mg tablet 25 mg PO DAILY 12/20/24 12/20/24 Unknown History Allergies Allergy/AdvReac Type Severity Reaction Status Date / Time hydrocodone Allergy Intermediate ADV-Weaknes Verified 10/24/24 07:49 s codeine Allergy ALGY-Hives Verified 10/24/24 07:49 oxycodone Allergy ALGY-Hives Verified 11/10/24 00:42 [facility] Anesthesia Medical History Spontaneous vaginal delivery Irritable bowel syndrome (IBS) (~02/2022) more constipation; managed with medication Asthma Diagnosed as a child. Mild intermittent and uses an albuterol inhaler as needed. ----> Does not have a manager compensation or primary care doctor and usually gets refills through urgent care. No pertinent past medical history Denies diabetes, hypertension, seizures, DVT/PE PCP: Lilibeth Slaughter Surgical History Hx of anterior cruciate ligament surgery (~02/26/22) S/P wisdom tooth extraction Family History Denies family history of Colon cancer Ovarian cancer Heart disease Hyperlipidemia Breast cancer Hypertension Uterine cancer Thyroid disease Stroke Social History Smoking and tobacco/nicotine status: never used tobacco/nicotine Data Anesthesia 12/20/24 16:11 12/20/24 16:11 Short CBC 12/20/24 Range/Units 16:11 WBC 8.25 (3.29-11.43) 10^3/uL Hgb 12.80 (11.27-16.99) g/dL Hct 40.0 (36-47) % MCV 85.3 (85-98) fl Plt Count 337 (157-399) 10^3/cmm Neut % (Auto) 65.0 % Neut # (Auto) 5.36 (1.8-7.7) 10^3/uL BMP 12/20/24 16:11 Sodium 139 Potassium 3.8 Chloride 103 Carbon Dioxide 22 BUN 11 Creatinine 0.7 Glucose 78 Calcium 9.6 Coags 12/20/24 16:11 PT 12.70 INR 0.89 Cardiac Studies: No Data to Display
--- NOTE | 2024-12-20 17:44 | W.PM.OPSFHP ---
Same Day Surgery H&P Indication for Procedure/HPI DATE OF PROCEDURE: December 20, 2024 CHIEF COMPLAINT/INDICATIONFOR SURGICAL PROCEDURE: Vaginal bleeding PREOP DIAGNOSIS: Retained products of conception PLANNED PROCEDURE: Operation Date: 12/20/24 15:55 Proposed Procedures p Dilation And Curettage (D&C)(Not Applicable) - Andrez Salomon MD Mrs. Rossi 24-year-old female G1, P1 is status post spontaneous vaginal delivery on November 10. Seen by PCP complaining of persistent vaginal bleeding. Ultrasound performed showing possible retained products of conception ROS Vaginal bleeding Medications/Allergies* Home Medications ?Medication ?Instructions ?Recorded ?Confirmed ?Type bupropion HCl 150 mg 24 hr tablet, 150 mg PO DAILY 12/20/24 12/20/24 History extended release buspirone 10 mg tablet 10 mg PO BID 12/20/24 12/20/24 History escitalopram oxalate 10 mg tablet 10 mg PO DAILY 12/20/24 12/20/24 History sertraline 25 mg tablet 25 mg PO DAILY 12/20/24 12/20/24 History Allergies/Adverse Reactions Allergy/AdvReac Type Severity Reaction Status Date / Time hydrocodone Allergy Intermediate ADV-Weaknes Verified 10/24/24 07:49 s codeine Allergy ALGY-Hives Verified 10/24/24 07:49 oxycodone Allergy ALGY-Hives Verified 11/10/24 00:42 Pertinent History/Comorbid Conditions* Medical History (Updated 12/20/24 @ 16:51 by Andrez Martínez DO) Spontaneous vaginal delivery Irritable bowel syndrome (IBS) (~02/2022) more constipation; managed with medication Asthma Diagnosed as a child. Mild intermittent and uses an albuterol inhaler as needed. ----> Does not have a supervisor backfilling or primary care doctor and usually gets refills through urgent care. No pertinent past medical history Denies diabetes, hypertension, seizures, DVT/PE PCP: Lilibeth Slaughter Surgical History (Updated 12/10/22 @ 11:25 by Jil Grubbs APN, XIMENA) Hx of anterior cruciate ligament surgery (~02/26/22) S/P wisdom tooth extraction Family History (Updated 11/19/21 @ 08:13 by Jil Hilliard, YULY) Denies family history of Colon cancer Ovarian cancer Heart disease Hyperlipidemia Breast cancer Hypertension Uterine cancer Thyroid disease Stroke Social History Smoking and tobacco/nicotine status: never used tobacco/nicotine Pertinent Exam Findings alert, oriented x 3, regular rate & rhythm and procedure specific exam findings General assessment: Alert and oriented x 3 Heart: Regular rhythm Abdomen: Soft, no guarding or tenderness, bowel sounds PRIVATE WATCHMAN: Vaginal bleeding Related Problem List Diagnoses (1) Retained products of conception after delivery with complications: Recommendations Surgery/Procedure today (Suction dilation and curettage) Coding Level of Care Code Acute Code for Chg Fwd Diagnoses Retained products of conception after delivery with complications O73.1
[2024-12-20] MEDS: sodium chloride 0.9% 1,000 ML 30 ML IV (17:47)
[2024-12-20] MEDS: lidocaine-epi 2% PF 1:200,000 20 mL SDV 10 ML INJECTION (18:19)
[2024-12-20] MEDS: ceFAZolin 2,000 mg SDV 2000 MG IVP (18:19)
--- NOTE | 2024-12-20 18:30 | W.PM.BPON ---
Date of Procedure: 12/20/24 Surgeon: Andrez Salomon MD Contract Manager(s): Procedure(s) performed: Suction dilation and curettage Findings of the procedure(s): Retained products of conception Estimated blood loss: 5 mL Specimen(s) removed: Products of conception Post-operative diagnosis: Status post D&C
--- NOTE | 2024-12-20 18:30 | PM.OP ---
Operative Report Date of procedure: December 20, 2024 Pre-op diagnosis: Retained products of conception Post-op diagnosis: same Procedure done: Suction dilation and curettage Specimens removed/disposition: Products of conception Surgeon: Andrez Salomon MD Estimated blood loss (mL): 5 IV fluids (mL): 600 Complications: None Findings: placental cotyledon Procedure: After informed consent, the patient was taken to the Operating Room where general anesthesia was administered. The patient was examined under anesthesia and found to have a enlarged uterus with normal adnexa. She was placed in the dorsal lithotomy position and prepped and draped in sterile fashion. A sterile weighted speculum was placed in the patient's vagina. A single-tooth tenaculum was then applied to the cervix. The uterus was then gently sounded to 10 cm and a #8 suction curette was advanced gently to the uterine fundus and product of conception emptied. A sharp curettage was then performed until a gritty texture was noted. There was minimal bleeding noted and the tenaculum was removed with good hemostasis noted. The patient tolerated the procedure well. The patient was taken to the recovery area in stable condition.
== END 2024-12-20 17:34 | disposition home or self-care (01) ==
LOC: ER 17:10 → OR 17:34
PROVIDERS: Emergency Provider Emergency Medicine; PCP Physician Assistant; Visit Provider Obstetrics & Gynecology
PROC: (CPT 58120; principal; 2024-12-20 15:45)
DX: O72.2 Delayed and secondary postpartum hemorrhage (principal); Z79.899 Other long term (current) drug therapy; Z88.5 Allergy status to narcotic agent
CPT/HCPCS: 59160; 80048; 84702; 85025; 85610; 88305; A4216; J0330; J0690; J1100; J1200; J2250; J2405; J2704; J3010; J7030; J9999

== ENCOUNTER 2025-04-19 20:13 | Emergency (ER) | payer BC, SELFPAY ==
[2025-04-19 20:22] VITALS: BP 123/69; PULSE 81; RESP 17; TEMP 36.8; O2SAT 99; BMI 32.5
--- OUTSIDE RECORDS SUMMARY | 2025-04-19 20:23 | XMS_ITS | Data Portability ---
Author Organization [facility], [facility] Address [address] [place] [address] Care Team Providers Care Station Operator Name Role Phone SYLVAIN CARREON Primary Care Provider Assessment Encounter Date Assessment Date Assessment LastModified by Organization Details LastModified Time 02/23/2025 02/23/2025 Contacted PCP, Dr. Carreon and agree on starting Prozac daily, Hydroxyzine PRN. F/u this week with him. Will perform self collect vaginal swab due to continued discharge. [email or web address] Not available 02/24/2025 19:09:42 Plan of Treatment Reminders Order Date Submit Date Provider Last Modified By Organization Details Last Modified Time Details Appointments None recorded. Lab unlisted lab - sureswab(R) advanced vaginitis plus, tma 2024 025 [employer] [facility], [address] [place] [address], [facility] [address] [place], [address], 17:29:27 beta-HCG, quantitativ e, serum or plasma 2024 025 [employer] [facility], [address] [place] [address] 248, [address] [place], [address], 07:02:30 Referral None recorded. Procedures None recorded. Surgeries None recorded. Imaging US, transvagina l - [id number] 2024 025 [facility] ([facility]), [address] [place] [address], [place], [address], 09:09:05 Medication Orders metronidazo le 500 mg tablet 2024 025 [facility] 15, [address], [place], [address], 05:01:09 hydroxyzine HCl 50 mg tablet 2024 025 [facility] 15, [address], [place], [address], 19:26:56 Prozac 20 mg capsule 2024 [facility] 15, [address], [place], [address], 19:26:57 Patient TargetsNo targets recorded. Patient InstructionsNo instructions recorded. Reason for Referral None Reported. Results Created Date Observation Date Name Description Value Unit Range Abnormal Flag Note LastModifiedBy Organization Detail LastModifiedTime 02/27/2002/26/2025 SURES WAB(R ) ADVAN ANDREW VAGIN ITIS PLUS, TMA sureswab(R) adv bacterial vaginosis (bv), tma POSITI VE negati ve abnormal Not Available [address] [address] [place], [address], 02/26/2025 17:29:27 02/27/2002/26/2025 SURES WAB(R ) ADVAN ANDREW VAGIN ITIS PLUS, TMA killian species NOT DETECT ED not detect ed normal Not Available [facility] [address] [address] [place], [address], 02/26/2025 17:29:27 02/27/20 25 02/26/2025 SURES WAB(R ) ADVAN ANDREW VAGIN ITIS PLUS, TMA killian glabrata NOT DETECT ED not detect ed normal Nica da speci es C. albic ans, C. tropi calis , C. parap lul is, and/o r C. jeanna sarmiento is can be detec ximena, but not diffe renti ated, in the Nica da spp. resul t. Not Available [facility] [address] [address] [place], [address], 02/26/2025 17:29:27 02/27/2002/26/2025 SURES WAB(R ) ADVAN ANDREW VAGIN ITIS PLUS, TMA trichomonas vaginalis (TV), tma NOT DETECT ED not detect ed normal Not Available [facility] [address], [address], 02/26/2025 17:29:27 02/27/20 25 02/26/2025 SURES WAB(R ) ADVAN ANDREW VAGIN ITIS PLUS, TMA chlamydia trachomatis RNA, tma, urogenital NOT DETECT ED not detect ed normal Not Available [facility] [address], [address], 02/26/2025 17:29:27 02/27/20 25 02/26/2025 SURES WAB(R ) ADVAN ANDREW VAGIN ITIS PLUS, TMA neisseria gonorrhoeae RNA, tma, urogenital NOT DETECT ED not detect ed normal For addit ional isa taylor refer to https ://ed ati on.BarEye. Fracture/f aq/FA Q154 (This link is being provi ded for zarina lemos/ jessi curiel purpo ses only. ) NO COLLE CTION DATE RECEI SILVANA. WE HAVE USED THE DATE THE SPECI MEN WAS RECEI SILVANA BY THIS LABOR ATORY THE COLLE CTION DATE. IF THIS IS INCOR RECT, ISA Oshea CONTA CT CLIEN T SERVI IMELDA. PHONE COREY R: 496.6 [phone] 78 Not Available [facility] [address] [address] [place], [address], 02/26/2025 17:29:27 12/19/19 25 12/18/2024 CBC WBC 8.4 x10 4.0-10 .5 Not Available [facility] [address] [facility] 1, [place], [address], 12/18/2024 13:15:51 12/19/19 25 12/18/2024 CBC RBC 4.96 x10 3.50-5 .50 Not Available [facility] [address] [facility] 1, [place], [address], 12/18/2024 13:15:51 12/19/19 25 12/18/2024 CBC HGB 13.8 g/dL 12.0-1 6.0 Not Available [facility] [address] [facility] 1, [place], [address], 12/18/2024 13:15:51 12/19/19 25 12/18/2024 CBC HCT 43.1 % 37.0-4 7.0 Not Available [facility] [address] [facility] 1, [place], [address], 12/18/2024 13:15:51 12/19/19 25 12/18/2024 CBC MCV 86.8 fL 80.0-9 9.9 Not Available [facility] [address] [facility], [place], [address], 12/18/2024 13:15:51 12/19/19 25 12/18/2024 CBC MCH 27.8 pg 27.0-3 2.0 Not Available [facility] [address] [facility] [facility] 1, [place], [address], 12/18/2024 13:15:51 12/19/19 25 12/18/2024 CBC MCHC 32.0 g/dL 32.0-3 6.0 Not Available [facility] [address] [facility], [place], [address], 12/18/2024 13:15:51 12/19/19 25 12/18/2024 CBC RDW 14.2 % 11.5-1 4.5 Not Available [facility] [address] [facility] [place], [address], 12/18/2024 13:15:51 12/19/19 25 12/18/2024 CBC plt 302.3 x10 140.0- 451.0 Not Available [facility] [address] [facility] 1, [place], [address], 12/18/2024 13:15:51 12/19/19 25 12/18/2024 CBC lymphocytes % 20.9 % 20.0-5 0.0 Not Available [facility] [address] [facility] 1, [place], [address], 12/18/2024 13:15:51 12/19/19 25 12/18/2024 CBC granulcytes % 72.2 % 30.0-7 0.0 high Not Available [facility] [address] [facility] 1, [place], [address], 12/18/2024 13:15:51 12/19/19 25 12/18/2024 CBC monocytes % 5.9 % 2.0-16 .0 Not Available [facility] [address] [facility] 1, [place], [address], 12/18/2024 13:15:51 12/19/19 25 12/18/2024 CBC granulcytes# 6.0 x10 Not Niyah ilable [facility] [address] [facility] 1, [place], [address], 12/18/2024 13:15:51 12/19/19 25 12/18/2024 CBC lymphocytes # 1.8 x10 Not Available [facility] [address] [address], [place], [address], 12/18/2024 13:15:51 12/19/19 25 12/18/2024 CBC monocytes # 0.5 x10 Not Avai lable [facility] [address] [facility] 1, [place], [address], 12/18/2024 13:15:51 12/19/19 25 12/18/2024 CMP (FEMA LE) glucose 95.0 mg/dL 60.0-9 9.0 Not Available [facility] [address] [facility] 1, [place], [address], 12/18/2024 13:56:59 12/19/19 25 12/18/2024 CMP (FEMA LE) BUN (blood urea nitrogen) 10.0 mg/dL 10.0-2 6.0 Not Available [facility] [address] [facility] 1, [place], [address], 12/18/2024 13:56:59 12/19/19 25 12/18/2024 CMP (FEMA LE) creatinine (serum) 0.7 mg/dL 0.4-1. 5 Not Available [facility] [address] [address], [place], [address], 12/18/2024 13:56:59 12/19/19 25 12/18/2024 CMP (FEMA LE) BUN/creatini ne ratio 14.29 ratio Not Available [facility] [address] [address], [place], [address], 12/18/2024 13:56:59 12/19/19 25 12/18/2024 CMP (FEMA LE) eGFR calculated 107.[address] [facility] [address] [address], [place], [address], 12/18/2024 13:56:59 12/19/19 25 12/18/2024 CMP (FEMA LE) total protein 8.6 g/dL 6.0-8. 5 high Not Available [facility] [address] [facility], [place], [address], 12/18/2024 13:56:59 12/19/19 25 12/18/2024 CMP (FEMA LE) total bilirubin 0.4 mg/dL 0.2-1. 3 Not Available [facility] [address] [facility] 1, [place], [address], 12/18/2024 13:56:59 12/19/19 25 12/18/2024 CMP (FEMA LE) albumin 4.9 g/dL 3.5-5. 5 Not Available [facility] [address] [facility] 1, [place], [address], 12/18/2024 13:56:59 12/19/19 25 12/18/2024 CMP (FEMA LE) globulin 3.7 calc Not Available [facility] [address] [facility] 1, [place], [address], 12/18/2024 13:56:59 12/19/19 25 12/18/2024 CMP (FEMA LE) AST (SGOT) 19.0 U/L 0.0-46 .0 Not Available [facility] [address] [facility] 1, [place], [address], 12/18/2024 13:56:59 12/19/19 25 12/18/2024 CMP (FEMA LE) altv (SGPT) 16.0 U/L 13.0-6 9.0 normal Not Available [facility] [address] [facility], [place], [address], 12/18/2024 13:56:59 12/19/19 25 12/18/2024 CMP (FEMA LE) A/G ratio 1.3 ratio Not Available [facility] [address] [facility] 1, [place], [address], 12/18/2024 13:56:59 12/19/19 25 12/18/2024 CMP (FEMA LE) ALP phos 84.0 U/L 30.0-1 40.0 normal Not Available [facility] [address] [facility] 1, [place], [address], 12/18/2024 13:56:59 12/19/19 25 12/18/2024 CMP (FEMA LE) calcium 9.9 mg/dL 8.4-10 .5 Not Available [facility] [address] [facility] 1, [place], [address], 12/18/2024 13:56:59 12/19/19 25 12/18/2024 CMP (FEMA LE) sodium 140.0 mmol/ L 136.0- 145.0 Not Available [facility] [address] [facility] 1, [place], [address], 12/18/2024 13:56:59 12/19/19 25 12/18/2024 CMP (FEMA LE) potassium 4.0 mmol/ L 3.5-5. 1 Not Available [facility] [address] [facility] 1, [place], [address], 12/18/2024 13:56:59 12/19/19 25 12/18/2024 CMP (FEMA LE) chloride 101.0 mmol/ L 98.0-1 10.0 normal Not Available [facility] [address] [facility] 1, [place], [address], 12/18/2024 13:56:59 12/19/19 25 12/18/2024 CMP (FEMA LE) C02 27.0 mmol/ L 22.0-3 1.0 Not Available [facility] [address] [facility] 1, [place], [address], 12/18/2024 13:56:59 12/19/19 25 12/18/2024 CMP (FEMA LE) anion gap 12.0 calc Not Available [facility] [address] [facility] 1, [place], [address], 12/18/2024 13:56:59 12/19/19 25 12/18/2024 CMP (FEMA LE) osmolality 288.1 calc Not Available [facility] [address] [facility] 1, [place], [address], 12/18/2024 13:56:59 12/30/19 25 12/30/2024 HCG, TOTAL , QN HCG, total, qn <5 mIU/m L normal Refer ence Range Nonpr egnan t or preme nopau janice <5 Postm enopa usal <10 Value s from diffe rent assay metho ds may vary. The use of this assay to monit or or to diagn ose patie nts with cance r or any condi tion unrel ated to pregn ladarius has not been clear ed or appro silvana by the FDA or the [facility] actur er of the assay . Not Available [facility] [address] , [place], [address], 12/30/2024 07:02:30 01/13/20 25 01/12/2025 PPD (chay fied prote in deriv ative ), skin test TB negati ve Not Available [facility] ([facility]) [address] [place], [address], 01/10/2025 10:33:39 12/21/19 25 12/20/2024 US, pelvi s No observ ation record ed. [email or web address] [facility] [address] [place], [address], 12/21/2024 17:31:09 02/16/20 25 02/13/2025 US, trans vagin al No observ ation record ed. amckale [facility] ([facility] [address] [place], [address], 02/16/2025 09:09:05 Result Notes None recorded. Problems Name Problem SNOMED Code Status Onset Date Resolution Date Notes Provider Name and Address Organization Details Recorded Time Obesity 036219549 Active 2021 OBESITY (BMI 30-39.9); Recorded 2 11:26AM by Bernadine Moreno LPN, Office Visit; Promoted; acuity set as *; OBESITY (BMI 35.0-39.9 WITHOUT COMORBIDI TY); Recorded 2 10:14AM by Liana Almaraz LPN, Office Visit; Promoted; acuity set as *; ; Start Date : 2 Ani jarrett [facility] 5 16:18:56 Asthma 549978384 Active 2021 Asthma; 2 11:26AM by Bernadine Moreno LPN, Office Visit; Promoted; acuity set as *; Ani jarrett [facility] 5 16:20:06 Irritabl e bowel syndrome characte rized by constipa tion 591534084 Active 2021 IRRITABLE BOWEL SYNDROME WITH CONSTIPAT ION; Recorded 2 11:26AM by Bernadine Moreno LPN, Office Visit; Promoted; acuity set as *; Ani jarrett [facility] 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 5 16:19:46 Depressi ve disorder 99050711 Active 2022 Ani jarrett [facility] 5 16:17:54 Pregnanc y 09885962 Completed 202312/23/2024 Sylvain Carreon MD [address] [place], [address], [facility] 5 19:22:23 Vaginal discharg e 577869208 Completed 202312/22/2024 Ani jarrett [facility] 5 16:19:19 Acute gastroen teritis 36115330 Completed 202412/22/2024 Ani jarrett [facility] 5 16:20:17 Postpart um depressi on 06896335 Active 2024 Ani jarrett [facility] 5 16:18:50 Delayed AND/OR secondar y postpart um hemorrha ge 02304420 Active 2024 Ani jarrett [facility] 5 16:19:59 Pain in pelvis 27529849 Active 2024 Ani jarrett [facility] 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 Procedures Surgical History Date Name Laterality Status Provider Name and Address Organization Details Recorded Time 12/22/19 25 dilation and curettage completed Vincent Frias [facility] 01/10/2025 14:12:02 reconstruction of anterior cruciate ligament of knee joint completed ALLA DOMINIQUENorm DONALD [facility] 03/09/2024 17:05:26 Imaging Results None recorded. Procedure Notes None recorded. Medical Equipment None Reported. Allergies Allergen ID Allergen Name Allergen Category Reaction Reaction Severity Criticality Documentation Date Start Date Code Code System Note Provider Name and Address Organization Details Recorded Time 49862 codeine medicatio n hives Not available Not available 05/01/2023 2670 RxNorm React ion: Hives , Itchi ng; Comme nt: Recor ded 09/23 1:11P M by Thea rangel LPN, Offic e Visit ; Promo ximena; Signi fican ce: *; Reaso n: Drug aller gy; ; Not Available [facility] 3 02:25:03 4385 oxycodone medicatio n Not available Not available Not available 03/18/2023 7804 RxNorm LIANA GRAEME jarrett [facility] 3 15:08:35 20793 sertralin e medicatio n hives rash Not available Not available [facility] 11/19/20242023 45705 RxNorm ana jarrett [facility] 5 11:19:27 Medications Name Sig Start Date Stop Date Status Note LastModified by Organization Details LastModified Time amoxicill in 500 mg capsule TAKE 2 CAPSULES BY MOUTH THREE TIMES DAILY FOR 5 DAYS 09/18 completed Not Available Not Available Not Available medroxypr ogesteron e 10 mg tablet TAKE 1 TABLET BY MOUTH ONCE DAILY FOR 10 DAYS 03/09 completed Not Available Not Available Not Available metformin 500 mg tablet Take 1 tablet twice a day by oral route. 03/05 completed Not Available Not Available Not Available cetirizin e 10 mg tablet Take 1 tablet every day by oral route for 30 days. 03/09 completed Not Available Not Available Not Available ibuprofen 800 mg tablet TAKE 1 TABLET BY MOUTH THREE TIMES DAILY NEEDED FOR PAIN 02/23 completed Not Available Not Available Not Available fluconazo le 150 mg tablet 03/05 completed Not Available Not Available Not Available valacyclo vir 1 gram tablet TAKE 1 TABLET BY MOUTH TWICE DAILY FOR 7 DAYS 02/26 completed Not Available Not Available Not Available hydroquin one 4 % topical cream APPLY TO THE AFFECTED AREA(S) BY TOPICAL ROUTE 2 TIMES PER DAY IN THEMORNI NG AND AT BEDTIME 03/09 completed Not Available Not Available Not Available prednison e 20 mg tablet Days 1-2: 2 tabs. Days 3-4: 1 tab. Days 5-6: 0.5 tabs 02/26 completed Not Available Not Available Not Available Tubersol 5 tub. unit/0.1 mL intraderm al injection solution Inject 5 units by intrader mal route as directed . 02/23 completed Not Available Not Available Not Available Zithromax Z-Vern 250 mg tablet daily 05/11 completed 2 tabs today and 1 tab daily the next 4 days vo KM/; Recorded 09/30/20 22 4:44PM by Liana Almaraz LPN, Historic al Summary; Refill Quantity : 0; Not Available Not Available Not Available metronida zole 500 mg tablet Take 1 tablet twice a day by oral route for 7 days. 04/13 completed Not Available Not Available Not Available hydroxyzi ne HCl 50 mg tablet TAKE 1 TABLET BY MOUTH THREE TIMES DAILY NEEDED FOR ANXIETY active Not Available Not Available No t Available amoxicill in 875 mg tablet Take 1 tablet every 12 hours by oral route for 7 days. 03/05 completed Not Available Not Available Not Available buspirone 10 mg tablet Take 1 tablet twice a day by oral route. active Not Available Not Available No t Available clotrimaz ole-betam ethasone 1 %-0.05 % topical cream APPLY TO AFFECTED AREA TWICE DAILY FOR 7 DAYS active Not Available Not Available No t Available olopatadi ne 0.1 % eye drops INSTILL 1 DROP INTO AFFECTED EYE(S) BY OPHTHALM IC ROUTE 2 TIMES PER DAY AT AN INTERVAL OF 6 TO 8 HOURS 02/26 completed Not Available Not Available Not Available polymyxin B sulfate 10,000 unit-trim ethoprim 1 mg/mL eye drops INSTILL 1 DROP IN AFFECTED EYE(S) EVERY 3 HOURS 02/23 completed Not Available Not Available Not Available sertralin e 25 mg tablet Take 1 tablet every day by oral route. 11/19 completed Not Available Not Available Not Available scopolami ne 1 mg over 3 days transderm al patch APPLY 1 PATCH TOPICALL Y DIRECTED ONCE EVERY 3 DAYS 03/09 completed Not Available Not Available Not Available ondansetr on 4 mg disintegr ating tablet Place 1 tablet 3 times a day by translin gual route as needed. 11/24 completed Not Available Not Available Not Available fluoxetin e 20 mg capsule TAKE 1 CAPSULE BY MOUTH ONCE DAILY active Not Available Not Available No t Available amoxicill in 875 mg-potass ium clavulana te 125 mg tablet Take 1 tablet every 12 hours by oral route for 7 days. 12/18 completed Not Available Not Available Not Available escitalop clarissa 10 mg tablet Take 1 tablet every day by oral route. 02/27 completed Not Available Not Available Not Available Vitamin B6 100 mg tablet Take by oral route. 05/15 completed Not Available Not Available Not Available bupropion HCl XL 300 mg 24 hr tablet, extended release Take 1 tablet by mouth once daily 03/09 completed PT NEEDS AN APPT FOR MORE REFILLS KM/DH Not Available Not Available Not Available bupropion HCl XL 150 mg 24 hr tablet, extended release TAKE 1 TABLET BY MOUTH ONCE DAILY 12/18 completed pt did not like the way it made her feel. Not Available Not Available Not Available Pepcid 04/17 completed Not Available Not Available Not Available Unisom (doxylami ne) 11/24 completed Not Available Not Available Not Available 11/24 completed Not Available Not Available Not Available Trazodone at bedtime 05/11 completed vo KM/dh; 65024; Recorded 08/31/20 1:25PM by Liana Almaraz LPN (Authori akthi through Debbie Slaughter PA-C), Refill Request; Refill Quantity : 30; Tablet; Not Available Not Available Not Available Lexapro daily 05/11 completed vo KM/dh; 41803; Recorded 07/17/20 12:31PM by Liana Almaraz LPN (Authori zed through Debbie Slaughter PA-C), Refill Request; Refill Quantity : 45; Tablet; Not Available Not Available Not Available ProAir HFA 90 mcg/actua tion aerosol inhaler every four hours, as needed 05/11 completed VO MW/tg; Recorded 07/17/20 10:15AM by Liana Almaraz LPN, Office Visit; Refill Quantity : 0; Not Available Not Available Not Available Amitiza two times daily 05/11 completed vo KM/dh; [address]602; Recorded 10/07/19 6:50AM by Liana Almaraz LPN (Authori kathi through Debbie Slaughter PA-C), Refill Request; Refill Quantity : 60; Capsule; Not Available Not Available Not Available Golytely 236 gram-22.7 4 gram-6.74 gram-5.86 gram oral solution Take 240 mL twice a day by oral route for 1 day. 03/05 completed Not Available Not Available Not Available vit B6-mag cit,oxid- potass cit 11/24 completed Not Available Not Available Not Available Vitals Date Recorded Body height Body mass index (BMI) Body weight Body temperature Oxygen saturation Oxygen saturation in Arterial blood by Pulse oximetry Heart rate Systolic And Diastolic Provider Name and Address Organization Details Last Updated DateTime 157.48 cm 30.8 kg/m2 05744.9 2 g 97.7 [degF] 97 % 97 % 85 /min 114/78 mm[Hg] JOCELIN HORN [facility] 5 12:07:13 Date Recorded Body height Oxygen saturation Oxygen saturation in Arterial blood by Pulse oximetry Heart rate Respiratory rate Body temperature Systolic And Diastolic Provider Name and Address Organization Details Last Updated DateTime 5 157.48 cm 98 % 98 % 77 /min 16 /min 97.5 [degF] 102/70 mm[Hg] Ani Anderson [facility] 5 10:31:28 Date Recorded Body height Body mass index (BMI) Body weight Oxygen saturation Oxygen saturation in Arterial blood by Pulse oximetry Heart rate Body temperature Systolic And Diastolic Provider Name and Address Organization Details Last Updated DateTime 5 157.48 cm 30.4 kg/m2 17384.0 3 g 99 % 99 % 68 /min 98.1 [degF] 128/72 mm[Hg] Charlene Tanner [facility] 5 18:22:43 Date Recorded Body height Body mass index (BMI) Body weight Body temperature Oxygen saturation Oxygen saturation in Arterial blood by Pulse oximetry Heart rate Systolic And Diastolic Provider Name and Address Organization Details Last Updated DateTime 5 157.48 cm 30.2 kg/m2 23877.7 4 g 97.3 [degF] 99 % 99 % 66 /min 108/68 mm[Hg] Shanna Auguste [facility] 5 14:02:16 Social History Question Answer Notes LastModified by Stypi Details LastModified Time Tobacco Smoking Status [facility]/27/[facility] 15:39:40 What Is Your Level Of Caffeine Consumption? Occasional [email or web address] Information not available 02/27/2025 What Was The Date Of Your Most Recent Tobacco Screening? 02/27/2025 [email or web address] Information not available 02/27/2025 Sex: Unknown Functional Status Question Answer Note LastModified by [employer] Details LastModified Time Do you use any illicit or recreational drugs? No [email or web address] Information not available 02/27/2025 What is your level of alcohol consumption? None Information not available 02/27/2025 Mental Status None recorded. Family History Relationship Description Onset Age of this Age Resolved Age Notes LastModified by Organization Details LastModified Time Mother Malignant neoplasm of lung Not available 03/2024 17:05:10 Medical History Condition Response Coronary Artery Disease N Gout N Other N Blood Diseases N Kidney Stones N Hyperthyroidism N Blood Transfusion N Breast Cancer N Depression N COPD N Lung Disease N Hypothyroidism N Developmental or Behavioral Disorders N Defects or Inherited Disease N Breast Problem N Difficulty Swallowing N Anesthesia Complications N Anxiety Disorder N Meniere's disease N Muscle, Joint, or Bone Problems N Vision or Eye Problems N Arthritis N Polyps N Infertility N Cancer N Varicosities N Stroke N Endometriosis N Bladder or Kidney Problems N High Cholesterol N Liver Disease N Headaches N Fibromyalgia N Kidney Disease N Allergies/Hayfever N Heart Problems N Ear or Hearing Problems N Hospitalizations N Thyroid Problems N GI Problems N ADD/ADHD N Skin Problems N Eating Disorder N Anemia N Constipation N Mental Illness N Ovarian Cancer N Diabetes N Bedwetting N Seizures/Epilepsy N Tuberculosis N Eczema N Diverticulitis N Abuse/Domestic Violence N Asthma N Reflux/GERD N Hepatitis N Heart Disease N Pulmonary Embolism N Chronic Ear Infections N Pre-Eclampsia N Hypertension N Chicken Pox N Autism Spectrum Disorder (ASD) N Osteoporosis N Thrombophilias N Gynecological History Statement/Question Response STIs/STDs N Date of Last Pap Smear Date of LMP 02/05/2024 Age at First Child 24 Sexually Active? Y Obstetrics History GPAL:G 1 P 1 0 0 1 Type Value Multiple Births 0 Full Term 1 Induced 0 Spontaneous 0 Premature 0 Living 1 Ectopics 0 Total 1 Immunizations Vaccine Type Date Status Note Provider Nam e and Address Organization Details Recorded Time HPV9 6 completed ALLA jarrett [facility], SandrineLCarol AnnCCarol Ann 03/09/2024 17:00:52 IPV 1 completed [facility] 03/09/2024 17:00:52 IPV 0 completed [facility] 03/09/2024 17:00:52 IPV 9 completed [facility] 03/09/2024 17:00:52 IPV 4 completed ALLA jarrett, [facility] 03/09/2024 17:00:52 Influenza, MDCK, quadrivalent, PF 2 completed ALLA DONALD [facility], [facility] 03/09/2024 17:00:52 Influenza, live, trivalent, intranasal 3 completed ALLA jarrett, [facility] 03/09/2024 17:00:52 MMR 0 completed ALLA jarrett, [facility] 03/09/2024 17:00:52 [facility] 03/[facility] 17:00:52 Tdap 0 completed ALLA DONALD [facility] 03/09/2024 17:00:52 varicella 0 completed ALLA DONALD [facility], [facility] 03/09/2024 17:00:52 [facility]icella 4 [facility] 03/09/2024 17:00:52 Hep B, unspecified formulation 0 completed ALLA DONALD [facility] 03/09/2024 17:00:52 Hep B, unspecified formulation 9 completed ALLA DONALD [facility], [facility] 03/09/2024 17:00:52 Hep B, unspecified formulation 8 [facility] 03/09/2024 17:00:52 HPV, quadrivalent 3 completed ALLA DONALD [facility] 03/09/2024 17:00:52 HPV, quadrivalent 5 completed ALLA DOMINIQUENorm DONALD [facility], [facility] 03/09/2024 17:00:52 Hep A, ped/adol, 2 dose 3 completed ALLA jarrett, [facility] 03/09/2024 17:00:52 Hep A, ped/adol, 2 dose 5 completed ALLA DOMINIQUE DONALD null, [facility] 03/09/2024 17:00:52 Hib (PRP-T) 1 completed ALLA DOMINIQUE DONALD [facility] 03/09/2024 17:00:52 Hib (PRP-T) 0 completed ALLA DOMINIQUE DONALD [facility] 03/09/2024 17:00:52 Hib (PRP-T) 9 completed ALLA DONALD [facility] 03/09/2024 17:00:52 meningococcal MCV4P 0 completed ALLA DONALD [facility] 03/09/2024 17:00:52 DTaP 1 completed ALLA DOMINIQUE DONALD [facility] 03/09/2024 17:00:52 DTaP 0 completed ALLA DOMINIQUE DONALD [facility] 03/09/2024 17:00:53 DTaP 9 completed ALLA DOMINIQUE DONALD [facility] 03/09/2024 17:00:53 DTaP 4 completed ALLA DONALD [facility] 03/09/2024 17:00:53 Tdap 4 completed Sylvain Carreon MD [address] [place], [address], [facility] 08/23/2024 09:05:10 Past Encounters Encounter ID Performer Location Encounter Start Date Encounter Closed Date Diagnosis/Indication Diagnosis SNOMED-CT Code Diagnosis ICD10 Code Diagnosis Note DEBBIE SLAUGHTER PA-C [facility] ([facility]) [address] [place] [address] [id number] 5 03/18/2023 15:02:52 03/30/2023 18:17:00 Obesity 509523296 E66.9 Depressive disorder 3548 9007 F32.A [id number] DEBBIE SLAUGHTER PA-C [facility] ([facility]) [address] [place] [address] [id number] 5 05/11/2023 11:47:51 05/11/2023 19:24:20 Obesity 556124943 E66.9 Depressive disorder 3548 9007 F32.A 15 min on telehealth [id number] MANUELITO NEWMAN [facility] ([facility]) [address] [place] [address] [id number] 5 06/06/2023 14:00:56 06/06/2023 14:45:01 Seasonal allergic rhinitis 824759726 J30.2 Acute bact erial sinusitis 67782839 J01.90 Allergic conjunctivitis of bilateral eyes 2589110860 80675 H10.13 [id number] MANUELITO BOURNE [facility] ([facility]) [address] [place] [address] [id number] 5 02/27/2024 15:37:02 02/28/2024 13:28:56 Low back pain 725479634 M54.50 Will call with urince culture results. Constipation 51295546 K5 9.00 Discussed use of Golytely.F /u if symptoms persist or worsen. [id number] MANUELITO BOURNE [facility] ([facility]) [address] [place] [address] [id number] 5 03/05/2024 14:12:16 03/08/2024 07:40:45 detection examination 55252160 Z32.00 Positive test today.Coun seled patient on no tobacco/ni cotine use.No alcohol use.Pt is taking a vitamin daily.F/u in ER if you develop vaginal bleeding/s potting, abd/pelvic /back pain.Incre ase your water intake.Con tact Dr. Campuzano's office to schedule an OB appt. [id number] Emelia Haile MD [facility] ([facility]) [address] [place] [address] [id number] 5 03/09/2024 16:57:05 03/14/2024 13:07:19 test positive 642320204 Z32.01 I reviewed what to avoid in and the plan of care. Depressive disorder 7282 9561 F32.A I advised that she may want to restart her wellbutrin as it is safe in and is preferred over mental health issues. [id number] Sylvain Carreon MD [facility] ([facility]) [address] [place] [address] [id number] 5 03/24/2024 11:37:26 03/24/2024 12:17:30 Normal 45697547 Z34.90 Continue with ultrasound as scheduled. Will go ahead and proceed with lab work. Review of beta-hCG performed at outside facility did show an appropriat e rise consistent with . Patient was reassured that everything appears to be going as expected. [id number] Emelia Haile MD [facility] ([facility]) [address] [place] [address] [id number] 5 04/05/2024 09:43:24 04/07/2024 09:09:45 [id number] Sylvain Carreon MD [facility] ([facility]) [address] [place] [address] [id number] 5 04/17/2024 09:33:06 04/17/2024 12:24:43 Normal in primigravida 7707942029 36797 Z34.01 No concerns at today's visit. Anticipato ry guidance provided. Gestation period, 10 weeks 40722250 Z3A.10 [id number] MANUELITO BOURNE [facility] ([facility]) [address] [place] [address] [id number] 5 04/25/2024 18:07:39 04/25/2024 18:36:51 Abdominal pain 65043759 R10.9 Tenderness from constipati on. continue miralax daily with goal of 1 bm daily.If you develop pelvic pain, vaginal spotting/b leeding then f/u in ER. [id number] Sylvain Carreon MD [facility] ([facility]) [address] [place] [address] [id number] 5 05/15/2024 09:27:49 05/15/2024 10:06:53 Normal in primigravida 0589516262 28959 Z34.01 No concerns at today's visit. Anticipato ry guidance provided. Gender us today..... no concerns, it is a boy Gestation period, 14 weeks 69666910 Z3A.14 [id number] Sylvain Carreon MD [facility] ([facility]) [address] [place] [address] [id number] 5 05/15/2024 08:58:32 05/15/2024 16:36:34 [id number] Sylvain Carreon MD [facility] ([facility]) [address] [place] [address] [id number] 5 06/12/2024 09:57:22 06/12/2024 10:39:21 Dysuria 01901142 R30.0 Normal pre gnancy in primigravida 1105900962 34468 Z34.01 Anticipato ry guidance provided. will check UA today. [id number] MANUELITO BOURNE [facility] ([facility]) [address] [place] [address] [id number] 5 06/21/2024 14:36:44 06/23/2024 15:10:42 Dizziness 159380275 R42 Blood sugar 147. No symptoms currently during exam. Discussed with patient she needs to increase her fluid intake. She needs to drink 4 of the George cups full of water daily and more if active. VSS. No concerns. [id number] Sylvain Carreon MD [facility] ([facility]) [address] [place] [address] [id number] 5 06/26/2024 12:28:24 06/27/2024 09:59:53 [id number] Sylvain Carreon MD [facility] ([facility]) [address] [place] [address] [id number] 5 07/10/2024 09:43:14 07/10/2024 10:37:27 Normal in primigravida 3007554181 80750 Z34.01 Anticipato ry guidance provided. Gestation period, 22 weeks 58165475 Z3A.22 [id number] Sylvain Carreon MD [facility] ([facility]) [address] [place] [address] [id number] 5 07/14/2024 11:04:20 07/14/2024 12:10:22 Normal in primigravida 6809775090 10764 Z34.01 No concerns on today's examinatio n. Heart tones, without difficulty and patient was reassured. Continue to monitor at this time. No further interventi on needed. Anticipato ry guidance provided. [id number] Sylvain Carreon MD [facility]) [address] [place] [address] [id number] 5 08/07/2024 09:50:44 08/07/2024 10:44:50 Normal in primigravida 3958005190 85503 Z34.01 No concerns on today's examinatio n. Heart tones, without difficulty and patient was reassured. Continue to monitor at this time. No further interventi on needed. Anticipato ry guidance provided. Gestation period, 26 weeks 10971260 Z3A.26 GTT today [id number] Sylvain Carreon MD [facility] ([facility]) [address] [place] [address] [id number] 5 08/21/2024 10:01:53 08/21/2024 10:46:52 Normal in primigravida 9514345102 14164 Z34.01 No concerns on today's examinatio n. Guidance provided. Will provide Tdap today Gestation period, 28 weeks 32655409 Z3A.28 [id number] Sylvain Carreon MD [facility] ([facility]) [address] [place] [address] [id number] 5 09/04/2024 09:48:10 09/04/2024 10:59:06 Vaginal discharge 586076782 N89.8 Patient reports slight increase in vaginal discharge. Has a history of BV so wet prep swab was obtained. Patient denies any other symptoms. Normal pre gnancy in primigravida 6679272098 24872 Z34.01 Anticipato ry guidance provided today. Gestation period, 30 weeks 77933817 Z3A.30 [id number] Sylvain Carreon MD [facility] ([facility]) [address] [place] [address] [id number] 5 10/02/2024 16:21:41 10/02/2024 17:48:35 Normal in primigravida 1372160953 60792 Z34.01 Anticipato ry guidance provided today. Spotting is likely secondary to intercours e. Monitor and follow-up if worsens or does not improve. Gestation period, 34 weeks 06637648 Z3A.34 [id number] Sylvain Carreon MD [facility] ([facility]) [address] [place] [address] [id number] 5 08/07/2024 09:37:49 08/08/2024 15:05:25 [id number] Z33.1 [id number] Sylvain Carreon MD [facility] ([facility]) [address] [place] [address] [id number] 5 08/23/2024 14:58:37 08/25/2024 04:07:42 [id number] Sylvain Carreon MD [facility] ([facility]) [address] [place] [address] [id number] 5 09/18/2024 09:58:16 09/18/2024 10:40:29 Dysuria 35835108 R30.0 Normal pre gnancy in primigravida 7713586160 59364 Z34.01 Anticipato ry guidance provided today. Gestation period, 32 weeks 6103874 Z3A.32 [id number] Sylvain Carreon MD [facility] ([facility]) [address] [place] [address] [id number] 5 10/16/2024 10:13:01 10/16/2024 11:27:16 Normal in primigravida 4831967894 30709 Z34.01 Anticipato ry guidance provided today. Monitor and follow-up if worsens or does not improve. Gestation period, 36 weeks 47203333 Z3A.36 [id number] Sylvain Carreon MD [facility] ([facility]) [address] [place] [address] [id number] 5 10/23/2024 10:15:31 10/23/2024 10:46:23 Normal in primigravida 4098405040 47809 Z34.01 Anticipato ry guidance provided today. Labor precaution s were discussed. Gestation period, 37 weeks 38981952 Z3A.37 [id number] MANUELITO BOURNE [facility] ([facility]) [address] [place], [place] [address]215-[address] 5 10/28/2024 08:02:50 10/28/2024 09:31:04 Vaginal discharge 882701250 N89.8 External genital exam performed today. Vaginal discharge normal. No concerns for infection. No pelvic exam completed. No related complaints . Keep appts as scheduled with OB. [id number] Sylvain Carreon MD [facility] ([facility]) [address] [place], [place] [address]75-[address] 5 10/30/2024 10:16:21 10/30/2024 11:29:31 Normal in primigravida 0398798397 87296 Z34.01 Anticipato ry guidance provided today. Labor precaution s were discussed. Gestation period, 38 weeks 46118790 Z3A.38 [id number] Sylvain Carreon MD [facility] ([facility]) [address] [place] [address] [id number] 5 11/06/2024 10:25:20 11/06/2024 11:05:33 Normal in primigravida 8108872535 01988 Z34.01 Anticipato ry guidance provided today. Labor precaution s were discussed. Induction scheduled for November 12. The plan is to utilize Cytotec overnight. Discussed induction with the patient and all questions were answered. Gestation period, 39 weeks 00789507 Z3A.39 [id number] Sylvain Carreon MD [facility] ([facility]) [address] [place] [address] [id number] 5 11/24/2024 09:31:12 11/24/2024 10:39:33 Local infection of wound 48260488 T14.90XS Concerned about developing infection at the site of the laceration . Will start antibiotic s. Follow-up if symptoms do not improve. [id number] Sylvain Carreon MD [facility] ([facility]) [address] [place] [address] [id number] 5 12/18/2024 12:30:09 12/18/2024 12:59:40 Pain in pelvis 07168407 R10.2 Patient is having more bleeding than expected at this stage of . Will check labs today and recommend that we get an ultrasound soon as possible. care 71356891 8 Z39.2 Recommend continuing restrictio ns including nothing vagina until symptoms have been fully evaluated. depression 58 900572 F53.0 Given the patient's concerns of her mood, we will restart her Lexapro and start buspirone. [id number] Sylvain Carreon MD [facility] ([facility]) [address] [place] [address] [id number] 5 12/20/2024 14:01:10 12/22/2024 16:59:57 [id number] Sylvain Carreon MD [facility] ([facility]) [address] [place] [address] [id number] 5 12/29/2024 11:51:49 12/29/2024 12:54:54 Retained products of conception 888520011 O72.2 Reviewed pathology results with the patient. Will check beta-hCG. Follow-up pending test results. [id number] Sylvain Carreon MD [facility] ([facility]) [address] [place] [address] [id number] 5 01/10/2025 10:14:02 01/10/2025 10:49:31 [id number] Sylvain Carreon MD [facility] ([facility]) [address] [place] [address] [id number] 5 02/13/2025 14:38:38 02/14/2025 10:26:17 Pelvic and perineal pain 019316005 R10.2 Patient is having more bleeding than expected at this stage of . Will check labs today and recommend that we get an ultrasound soon as possible. [id number] MANUELITO BOURNE [facility] ([facility]) [address] [place] [address] [id number] 5 02/23/2025 18:10:22 02/27/2025 16:06:57 depression 60037539 F53.0 30+ minutes spent one on one with patient discussing her symptoms, support system, new medication s we are starting today, and need for close f/u with PCP. Pt has no SI or HI. Support system at home with in laws who are assisting to care for the baby. Pt v[facility] if she has thoughts of hurting herself or the baby. Vaginal discharge 187778 006 N89.8 Self vaginal swab collected today. [id number] Sylvain Carreon MD [facility] ([facility]) [address] [place] [address] 5 02/27/2025 13:56:50 02/27/2025 14:48:08 Bacterial vaginosis 216985980 N76.0 B96.89 The discharge tested positive for bacterial vaginosis. Will start metronidaz ole. depression 58 733726 F53.0 Patient is tolerating fluoxetine and hydroxyzin e currently. Will follow-up at 1 month to ensure that we have had adequate response to the medication . Health Concerns Section Related Observation LastModified by Organization Detai ls LastModified Time None Recorded Concern Status LastModified by Organization Details LastModified Time None Recorded Advance Directives Directive None Recorded Payers Insurance Date Sequence Insurance Name Policy Number Policy Raya Covered Member ID Raya Member ID Guarantor Name 11/13/2024 1 [facility] [id number] 03/01/2025 1 [place] [id number] Savage Rossi [id number] Ro H 11/13/2024 1 [facility] [id number] Ro H 11/13/2024 1 [facility] [id number] Ro [id number] Notes Date Note Type Note Provider Name and Address Organization Details Recorded Time 12/29/2024 text/html VisitReported bypatient.Onset/Kedar ing:date of delivery: (11/10/24) Quality: Context:feeding choice: bottle; depression; resumed menstrual bleeding no Associated Symptoms:no vaginal discharge; no constipation; no dysuria; no fever; no problems; no mastitis; no uterine cramping;abnormal bleeding Contraception Plan:declines contraception Patient states that she is doing a little better. The patient is still bleeding off and on some. Patient denies any significant pain or fever. The patient has been having persistent nausea. Sylvain Carreon MD [address] [place] [address], [phone], [facility] 12/31/2024 17:30:42 02/23/2025 text/html walk inPt presen ts today stating she is struggling with depression. Her PCP prescribed her buspirone and escitalopram. Pt stopped these meds a couple weeks ago because she felt no improvement. states she is very anxious, tearful, not sleeping or eating, and does not feel she is bonding with her baby. Currently staying with her mother and father in law. Her is away due to being an over the road truckdriver. states her in laws are supportive and aware she is struggling.Also states she was referred to the [facility] for bleeding and discharge post D & C. She was not evaluated due to a large financial balance. Pt states she continues to have vaginal discharge and some lower pelvic pressure.Denies SI or HI. MANUELITO BOURNE [address] [place], [address], [facility] 02/24/2025 19:10:46 02/27/2025 text/html This 24-year-old female comes in today for walk-in follow-up. Patient was started on fluoxetine and hydroxyzine and has been tolerating the medication without any issues. No new issues since walk-in visit.She had vaginal swab, would like to have the results if those are back.Vaginal discharge is green is thick, no odor, has pain Sylvain Carreon MD [address] [place] [address], [phone], [facility] 02/28/2025 16:49:17 OBGyn Episode Ob Episode Information Episode Created Date Number of Fetuses Patient Bloodtype Patient rh Status Prepregnancy Weight lbs Domestic Partner Domestic Partner Phone Father Name Vision Mixer Status 12/19/19 25 1 CLOSED Fetus Data First Name Last Name Admitted to NICU Weight (g) Sex Living Outcome Pediatric Complications Fetus ID Race Codes Race Delivery Type 3912.23 1 F Full Term 7588 VAGINAL Cali Calculation Initial Cali Date Initial Exam Date Initial Exam Provider Initial Ultrasound Date Last Menstrual Period Date Ultra Sound Weeks Gestation 0 Eighteen To Twenty Week Cali Update Ultra Sound Date Fundal Height At Umbil Quickening Date Ultra Sound Latest Weeks Gestation Final Cali Confirmed By Final Cali Confirmed Date Final Cali Date Ultra Sound Latest Days Gestation 0 0 Menstrual History Last Menstrual Date Menses Monthly On Bcp Conception Prior Menses Frequency Hcg Plus Date Menarche Onset Age Delivery Information Delivery Date Delivery Type Labor Anesthesia Weeks Gestation Incision Type Labor Labor Length Hrs Delivered By Post Complications Tubal Sterilization Discharge Date Comments [facility] Carreon Discharge Information Feeding Method Contraceptive Method Maternal HG B and HCT Levels Ob Episode Information Episode Created Date Number of Fetuses Patient Bloodtype Patient rh Status Prepregnancy Weight lbs Domestic Partner Domestic Partner Phone Father Name Vision Mixer Status 03/09/20 24 1 A Positive Savage Rossi CLOSED Fetus Data First Name Last Name Admitted to NICU Weight (g) Sex Living Outcome Pediatric Complications Fetus ID Race Codes Race Delivery Type Anthony Bo rs false 3912.23 1 M true Full Term 4741 VAGINAL Cali Calculation Initial Cali Date Initial Exam Date Initial Exam Provider Initial Ultrasound Date Last Menstrual Period Date Ultra Sound Weeks Gestation 11/11/2024 03/09/2024 02/05/2024 0 Eighteen To Twenty Week Cali Update Ultra Sound Date Fundal Height At Umbil Quickening Date Ultra Sound Latest Weeks Gestation Final Cali Confirmed By Final Cali Confirmed Date Final Cali Date Ultra Sound Latest Days Gestation 0 11/11/19 25 0 Pre-sharita Flowsheet Flowsheet Date 03/09/2024 Maynard Score Blood Edema Fundus Height Fundus Units Glucose Ketones Leukocytes Nitrite Labor Signs Protein Cervic Dilation Cervic Effacement Cervic Station Type Weight in lbs Pre/Post Dialysis Refused Weight 184.093052596062 BP Diastolic BP Location Tested BP Systolic BP Type 70 118 Fetus Heart Rate Present Fetus Movement Comments Flowsheet Date 03/24/2024 Maynard Score Blood Edema Fundus Height Fundus Units Glucose Ketones Leukocytes Nitrite Labor Signs Protein Cervic Dilation Cervic Effacement Cervic Station Type Weight in lbs Pre/Post Dialysis Refused With clothes 184.315587226901 BP Diastolic BP Location Tested BP Systolic BP Type 78 L arm 130 sitting Fetus Heart Rate Present Fetus Movement Comments Flowsheet Date 04/05/2024 Maynard Score Blood Edema Fundus Height Fundus Units Glucose Ketones Leukocytes Nitrite Labor Signs Protein Cervic Dilation Cervic Effacement Cervic Station Type Weight in lbs Pre/Post Dialysis Refused BP Diastolic BP Location Tested BP Systolic BP Type Fetus Heart Rate Present Fetus Movement Comments Flowsheet Date 04/17/2024 Maynard Score Blood Edema Fundus Height Fundus Units Glucose Ketones Leukocytes Nitrite Labor Signs Protein Cervic Dilation Cervic Effacement Cervic Station none none Negative neg Type Weight in lbs Pre/Post Dialysis Refused With clothes 186.272850911704 BP Diastolic BP Location Tested BP Systolic BP Type 80 L arm 126 sitting Fetus Heart Rate Present Fetus Movement Comments fatigue, n/v, dizziness Flowsheet Date 04/25/2024 Maynard Score Blood Edema Fundus Height Fundus Units Glucose Ketones Leukocytes Nitrite Labor Signs Protein Cervic Dilation Cervic Effacement Cervic Station Type Weight in lbs Pre/Post Dialysis Refused With clothes 187.21651676183 BP Diastolic BP Location Tested BP Systolic BP Type 70 L arm 110 sitting Fetus Heart Rate Present Fetus Movement Comments Flowsheet Date 05/15/2024 Maynard Score Blood Edema Fundus Height Fundus Units Glucose Ketones Leukocytes Nitrite Labor Signs Protein Cervic Dilation Cervic Effacement Cervic Station Type Weight in lbs Pre/Post Dialysis Refused BP Diastolic BP Location Tested BP Systolic BP Type Fetus Heart Rate Present Fetus Movement Comments Flowsheet Date 05/15/2024 Maynard Score Blood Edema Fundus Height Fundus Units Glucose Ketones Leukocytes Nitrite Labor Signs Protein Cervic Dilation Cervic Effacement Cervic Station none none Negative neg Type Weight in lbs Pre/Post Dialysis Refused With clothes 187.026050473184 BP Diastolic BP Location Tested BP Systolic BP Type 60 L arm 102 sitting Fetus Heart Rate Present A 150 Fetus Movement A No Comments Flowsheet Date 06/12/2024 Maynard Score Blood Edema Fundus Height Fundus Units Glucose Ketones Leukocytes Nitrite Labor Signs Protein Cervic Dilation Cervic Effacement Cervic Station neg none none Negative trace Type Weight in lbs Pre/Post Dialysis Refused With clothes 188.511500990291 BP Diastolic BP Location Tested BP Systolic BP Type 80 L arm 126 sitting Fetus Heart Rate Present A 160 Fetus Movement A Yes Comments c/o uti sx. pt states that s he has been having dizziness. Flowsheet Date 06/21/2024 Maynard Score Blood Edema Fundus Height Fundus Units Glucose Ketones Leukocytes Nitrite Labor Signs Protein Cervic Dilation Cervic Effacement Cervic Station Type Weight in lbs Pre/Post Dialysis Refused BP Diastolic BP Location Tested BP Systolic BP Type 74 124 Fetus Heart Rate Present Fetus Movement Comments Flowsheet Date 06/26/2024 Maynard Score Blood Edema Fundus Height Fundus Units Glucose Ketones Leukocytes Nitrite Labor Signs Protein Cervic Dilation Cervic Effacement Cervic Station Type Weight in lbs Pre/Post Dialysis Refused BP Diastolic BP Location Tested BP Systolic BP Type Fetus Heart Rate Present Fetus Movement Comments Flowsheet Date 07/10/2024 Maynard Score Blood Edema Fundus Height Fundus Units Glucose Ketones Leukocytes Nitrite Labor Signs Protein Cervic Dilation Cervic Effacement Cervic Station neg 22 cm none none Negative trace Type Weight in lbs Pre/Post Dialysis Refused With clothes 193.19874966695 BP Diastolic BP Location Tested BP Systolic BP Type 78 L arm 128 sitting Fetus Heart Rate Present A 150 Fetus Movement Comments pt is having n/v, cramping, and headaches. pt denies any spotting or contractions. pt is being treated for BV right now. Flowsheet Date 07/14/2024 Maynard Score Blood Edema Fundus Height Fundus Units Glucose Ketones Leukocytes Nitrite Labor Signs Protein Cervic Dilation Cervic Effacement Cervic Station 22 cm none none Negative trace Type Weight in lbs Pre/Post Dialysis Refused With clothes 194.021403699267 BP Diastolic BP Location Tested BP Systolic BP Type 78 L arm 138 sitting Fetus Heart Rate Present A 150 Fetus Movement A Yes Comments pt was in the ER for spottin g 2 days ago. pt states that she is no longer spotting. pt is having n/v/constipation. pt is cramping occassionally. states that she is anxious today. Flowsheet Date 08/07/2024 Maynard Score Blood Edema Fundus Height Fundus Units Glucose Ketones Leukocytes Nitrite Labor Signs Protein Cervic Dilation Cervic Effacement Cervic Station Type Weight in lbs Pre/Post Dialysis Refused BP Diastolic BP Location Tested BP Systolic BP Type Fetus Heart Rate Present Fetus Movement Comments Flowsheet Date 08/07/2024 Maynard Score Blood Edema Fundus Height Fundus Units Glucose Ketones Leukocytes Nitrite Labor Signs Protein Cervic Dilation Cervic Effacement Cervic Station 26 cm none neg Type Weight in lbs Pre/Post Dialysis Refused With clothes 196.121839147252 BP Diastolic BP Location Tested BP Systolic BP Type 78 L arm 132 sitting Fetus Heart Rate Present A 160 Fetus Movement A Yes Comments headaches, nausea, doing 1 h r gtt today. Flowsheet Date 08/21/2024 Maynard Score Blood Edema Fundus Height Fundus Units Glucose Ketones Leukocytes Nitrite Labor Signs Protein Cervic Dilation Cervic Effacement Cervic Station 28 cm none none Negative trace Type Weight in lbs Pre/Post Dialysis Refused With clothes 200.131977854683 BP Diastolic BP Location Tested BP Systolic BP Type 80 L arm 132 sitting Fetus Heart Rate Present A 150 Fetus Movement A Yes Comments cramping, abdominal pain, ed kenan Flowsheet Date 08/23/2024 Maynard Score Blood Edema Fundus Height Fundus Units Glucose Ketones Leukocytes Nitrite Labor Signs Protein Cervic Dilation Cervic Effacement Cervic Station Type Weight in lbs Pre/Post Dialysis Refused BP Diastolic BP Location Tested BP Systolic BP Type Fetus Heart Rate Present Fetus Movement Comments Flowsheet Date 09/04/2024 Maynard Score Blood Edema Fundus Height Fundus Units Glucose Ketones Leukocytes Nitrite Labor Signs Protein Cervic Dilation Cervic Effacement Cervic Station 31 cm none none Negative neg Type Weight in lbs Pre/Post Dialysis Refused With clothes 201.39561610862 BP Diastolic BP Location Tested BP Systolic BP Type 60 L arm 112 sitting Fetus Heart Rate Present A 150 Fetus Movement A Yes Comments Flowsheet Date 09/18/2024 Maynard Score Blood Edema Fundus Height Fundus Units Glucose Ketones Leukocytes Nitrite Labor Signs Protein Cervic Dilation Cervic Effacement Cervic Station 32 cm none none Negative trace Type Weight in lbs Pre/Post Dialysis Refused With clothes 202.880248696396 BP Diastolic BP Location Tested BP Systolic BP Type 80 L arm 120 sitting Fetus Heart Rate Present A 140 Fetus Movement A Yes Comments decreased urine output, cram ping, constipation. wants epidural, will send over consult form today. Flowsheet Date 10/02/2024 Maynard Score Blood Edema Fundus Height Fundus Units Glucose Ketones Leukocytes Nitrite Labor Signs Protein Cervic Dilation Cervic Effacement Cervic Station 34 cm none none Negative trace Type Weight in lbs Pre/Post Dialysis Refused With clothes 208.073975789872 BP Diastolic BP Location Tested BP Systolic BP Type 82 L arm 130 sitting Fetus Heart Rate Present A 150 Fetus Movement A Yes Comments decreased urine output, cram ping Flowsheet Date 10/16/2024 Maynard Score Blood Edema Fundus Height Fundus Units Glucose Ketones Leukocytes Nitrite Labor Signs Protein Cervic Dilation Cervic Effacement Cervic Station 36 cm none none Negative trace Type Weight in lbs Pre/Post Dialysis Refused With clothes 205.322038666612 BP Diastolic BP Location Tested BP Systolic BP Type 82 L arm 130 sitting Fetus Heart Rate Present A 150 Fetus Movement A Yes Comments cramping, nausea, diarhea, v aginal pressure, spottingGBS obtained today Flowsheet Date 10/23/2024 Maynard Score Blood Edema Fundus Height Fundus Units Glucose Ketones Leukocytes Nitrite Labor Signs Protein Cervic Dilation Cervic Effacement Cervic Station 37 cm none none Negative trace 0cm 70% -3 Type Weight in lbs Pre/Post Dialysis Refused With clothes 206.271469825192 BP Diastolic BP Location Tested BP Systolic BP Type 84 L arm 138 sitting Fetus Heart Rate Present A 170 Fetus Movement A Yes Comments craming, nausea, lots of pre ssure. wants checked today.GBS positivechart sent on 10/20/24 Flowsheet Date 10/28/2024 Maynard Score Blood Edema Fundus Height Fundus Units Glucose Ketones Leukocytes Nitrite Labor Signs Protein Cervic Dilation Cervic Effacement Cervic Station Type Weight in lbs Pre/Post Dialysis Refused Weight 206.360529975489 BP Diastolic BP Location Tested BP Systolic BP Type 80 134 Fetus Heart Rate Present Fetus Movement Comments Flowsheet Date 10/30/2024 Maynard Score Blood Edema Fundus Height Fundus Units Glucose Ketones Leukocytes Nitrite Labor Signs Protein Cervic Dilation Cervic Effacement Cervic Station none Negative neg 0cm 70% - 3 Type Weight in lbs Pre/Post Dialysis Refused With clothes 208.730725955196 BP Diastolic BP Location Tested BP Systolic BP Type 80 L arm 134 sitting Fetus Heart Rate Present A 150 Fetus Movement A Yes Comments cramping, nausea, contractio ns, wants checked today, induction consent signed Flowsheet Date 11/06/2024 Maynard Score Blood Edema Fundus Height Fundus Units Glucose Ketones Leukocytes Nitrite Labor Signs Protein Cervic Dilation Cervic Effacement Cervic Station none none Negative neg 0cm 70% - 3 Type Weight in lbs Pre/Post Dialysis Refused With clothes 208.392321217950 BP Diastolic BP Location Tested BP Systolic BP Type 84 L arm 138 sitting Fetus Heart Rate Present A 160 Fetus Movement A Yes Comments cramping, contractions, naus ea, vomiting, wants checked today Flowsheet Date 11/24/2024 Maynard Score Blood Edema Fundus Height Fundus Units Glucose Ketones Leukocytes Nitrite Labor Signs Protein Cervic Dilation Cervic Effacement Cervic Station Type Weight in lbs Pre/Post Dialysis Refused With clothes 180.962707741616 BP Diastolic BP Location Tested BP Systolic BP Type 80 L arm 130 sitting Fetus Heart Rate Present Fetus Movement Comments Flowsheet Date 12/18/2024 Maynard Score Blood Edema Fundus Height Fundus Units Glucose Ketones Leukocytes Nitrite Labor Signs Protein Cervic Dilation Cervic Effacement Cervic Station Type Weight in lbs Pre/Post Dialysis Refused With clothes 173.503507032960 BP Diastolic BP Location Tested BP Systolic BP Type 78 L arm 120 sitting Fetus Heart Rate Present Fetus Movement Comments Flowsheet Date 12/20/2024 Maynard Score Blood Edema Fundus Height Fundus Units Glucose Ketones Leukocytes Nitrite Labor Signs Protein Cervic Dilation Cervic Effacement Cervic Station Type Weight in lbs Pre/Post Dialysis Refused BP Diastolic BP Location Tested BP Systolic BP Type Fetus Heart Rate Present Fetus Movement Comments Menstrual History Last Menstrual Date Menses Monthly On Bcp Conception Prior Menses Frequency Hcg Plus Date Menarche Onset Age 0502/05/2024 false Genetic Screening And Infection History Question Response Note Patient's Age Will Be 35 Yea rs Or Older At Estimated Date of Delivery false Thalassemia (Swazi, Divehi, Mediterranean, Or Background): MCV < 80 false Neural Tube Defect (Meningom yelocele, Spina Bifida, Or Anencephaly) false Congenital Heart Defect false Down Syndrome false Jose-Sachs (eg, Islam, Cajun, Turkmen-[place]) f alse Leeanne Disease false Sickle Cell Disease Or Trait () false Hemophilia Or Other Blood Disorders false Muscular Dystrophy false Cystic Fibrosis false [place]'s Chorea false Intellectual Disability/Autism false If Yes, Was Person Tested For Fragile X? false Other Inherited Genetic Or Chromosomal Disorder false Maternal Metabolic Disorder (eg, Type 1 Diabetes , PKU) false Patient Or Baby's Father Had A Child With Defects Not Listed Above false Recurrent Loss, Or A Stillbirth false Medications (including Suppl ements, Vitamins, Herbs, OTC Drugs), Illicit/Recreational Drugs, Alcohol true prenatals If Yes, Agent(s) And Strength/Dosage false Any Other Genetic History false Live With Someone With TB Or Exposed To TB false Patient Or Partner Has History Of Genital Herpes false Rash Or Viral Illness Since Last Menstrual Perio d false History Of STD, Gonorrhea, Chlamydia, HPV, Syphi lis false Other Infection History false History of HIV false History of Hepatitis false Prior GBS-infected child false Hemoglobinopathy Or Carrier false Other Structural Defect false Recent Travel History Outside of Country false Mental Retardation/Autism false Delivery Information Delivery Date Delivery Type Labor Anesthesia Weeks Gestation Incision Type Labor Labor Length Hrs Delivered By Post Complications Tubal Sterilization Discharge Date Comments 5 39.6 false Sylvain Carreon MD Discharge Information Feeding Method Contraceptive Method Maternal HG B and HCT Levels
--- NOTE | 2025-04-19 20:43 | USR_ITS ---
PROCEDURE INFORMATION: Exam: US Pelvis, Complete, Non-Obstetric Exam date and time: 04/19/2025 8:58 PM Age: 24 years old Clinical indication: Pelvic pain; Prior surgery; Surgery date: 1-6 months; Surgery type: D&c on 12/20/2024 following vaginal live on 11/10/2024; Patient had recent ev on 02/12/2025 which was normal TECHNIQUE: Imaging protocol: Transabdominal pelvic nonobstetric ultrasound. Complete exam. Real time ultrasound with image documentation. COMPARISON: US transvaginal [id number] 02/13/2025 1:55 PM FINDINGS: Uterus: Uterus is normal, measuring 7.2 x 5.1 x 5.8 cm. Endometrial stripe is normal, measuring 7 mm in thickness. Right ovary/adnexa: Ovary is normal, measuring 3.4 x 2.9 x 1.7 cm. No mass. Normal blood flow. No torsion. Left ovary/adnexa: Ovary is normal, measuring 2.3 x 1.8 x 1.1 cm. No mass. Normal blood flow. No torsion. Intraperitoneal space: No intraperitoneal fluid. Urinary bladder: Remarkable. US/US pelvic complete* [id number] IMPRESSION: No acute findings.
--- NOTE | 2025-04-19 20:43 | ED_ITS ---
HPI - Female Genitourinary 2 General: Chief complaint: Urogenital-Female Stated complaint: Tissue hanging from Vaginal area Time Seen by Provider: 04/19/25 20:28 History of Present Illness: 24-year-old female patient presents to [facility] emergency department stating that she had a baby 4 months ago and was having some thinking out of her vagina to find out that she had retained products of conception and had to have a D&C patient states tonight she noticed a bulge coming from her vagina and was concerned that this was the same thing. Patient also complains of BV has returned patient states she is been on 2 rounds of antibiotics and is tested positive for BV and patient states that it is back. Patient denies any abdominal pain. Patient denies any fever. Patient denies any other complaints Related Data Home Medications ?Medication ?Instructions ?Recorded ?Confirmed bupropion HCl 150 mg 24 hr tablet, 150 mg PO DAILY 12/20/24 extended release buspirone 10 mg tablet 10 mg PO BID 12/20/24 escitalopram oxalate 10 mg tablet 10 mg PO DAILY 12/2012/20/24 sertraline 25 mg tablet 25 mg PO DAILY 12/20/2412/02 Previous Rx's ?Medication ?Instructions ?Recorded acetaminophen 325 mg capsule 325 mg PO Q4H PRN Postope rative 12/20/24 fever or pain #60 caps ibuprofen 800 mg tablet 800 mg PO TID PRN pain #60 t abs 12/20/24 clindamycin phosphate 2 % vaginal 1 appful vaginal VINOD LY 7 days #40 04/19/25 cream grams Allergies Allergy/AdvReac Type Severity Reaction Status Date / Time hydrocodone Allergy Intermediate ADV-Weaknes Verified 10/24/24 07:49 s codeine Allergy ALGY-Hives Verified 10/24/24 07:49 oxycodone Allergy ALGY-Hives Verified 11/10/24 00:42 Review of Systems 2 General: Reports: 10 or more systems reviewed and unremarkable except in HPI and below PFSH ED 2 PFSH: Medical History Spontaneous vaginal delivery Irritable bowel syndrome (IBS) (~02/2022) more constipation; managed with medication Asthma Diagnosed as a child. Mild intermittent and uses an albuterol inhaler as needed. ----> Does not have a facilities maintenance supervisor or primary care doctor and usually gets refills through urgent care. No pertinent past medical history Denies diabetes, hypertension, seizures, DVT/PE PCP: Lilibeth Slaughter Surgical History Hx of anterior cruciate ligament surgery (~02/26/22) S/P wisdom tooth extraction Family History Denies family history of Colon cancer Ovarian cancer Heart disease Hyperlipidemia Breast cancer Hypertension Uterine cancer Thyroid disease Stroke Social History Smoking and tobacco/nicotine status: never used tobacco/nicotine Physical Exam 2 Narrative: EXAM NARRATIVE: She is alert no acute distress. Const: COMMON NORMALS: no acute distress, average body habitus and patient oriented x3 GENERAL APPEARANCE: cooperative and comfortable HENMT: COMMON NORMALS: Normal nasal mucous membranes and turbinates present and moist oral mucous membranes NOSE: Normal nasal mucous membranes and turbinates present Eye: COMMON NORMALS: Equal, round and reactive pupils present and EOMs intact bilaterally PUPIL: Yes Equal, round and reactive pupils present Neck/C-Spine: COMMON NORMALS: full ROM Resp: COMMON NORMALS: normal respiratory effort and No use of accessory muscles EFFORT & INSPECTION: Yes able to speak in complete sentences Cardio: COMMON NORMALS: regular rate, regular rhythm and Peripheral pulses 2+ throughout RATE: regular rate RHYTHM: regular rhythm PERIPHERAL PULSES: Peripheral pulses 2+ throughout GI: COMMON NORMALS: Normal to inspection, nondistended, normoactive bowel sounds present, Soft to palpation and non-tender PALPATION: Yes Soft to palpation : COMMON NORMALS: Yes normal external appearance and Yes normal appearance of the vagina SPECULUM EXAM - VAGINA: Yes erythematous and No laceration Back/Pelvis: COMMON NORMALS: thoracic and lumbar spine normal to inspection, no thoracic nor lumbar tenderness and thoraco-lumbar ROM normal Extremity: COMMON NORMALS: normal to inspection, full ROM, no calf tenderness and no pedal edema Neuro: COMMON NORMALS: patient oriented x3, moves all extremities, no focal motor deficits and no sensory deficits noted Psych: COMMON NORMALS: mental status grossly normal Skin: COMMON NORMALS: no rashes or lesions noted, no wounds and no petechiae GENERAL SKIN EXAM: no rashes or lesions noted Course 2 Vital Signs: Vital signs: Vital Signs Temperature 98.2 F 04/19/25 20:22 Pulse Rate 81 04/19/25 20:22 Respiratory Rate 17 04/19/25 20:22 Blood Pressure 123/69 04/19/25 20:22 Pulse Oximetry 99 04/19/25 20:22 Oxygen Delivery Me thod Room Air 04/19/25 20:22 MDM - Female Medical Decision Making Patient is well-appearing nontoxic in no acute distress. 24-year-old female patient presents to the emergency department stating that she had a baby 4 months ago and was having some thinking out of her vagina to find out that she had retained products of conception and had to have a D&C patient states tonight she noticed a bulge coming from her vagina and was concerned that this was the same thing. Patient also complains of BV has returned patient states she is been on 2 rounds of antibiotics and is tested positive for BV and patient states that it is back. Patient denies any abdominal pain. Patient denies any fever. Patient denies any other complaints pelvic ultrasound is negative for any acute findings. Patient's labs are reassuring given patient's persistent BV and treatment with Flagyl I will give clindamycin cream at this time. Patient states that the bulge that she had coming from her vagina she was able to push back up on exam during her pelvic exam her cervix was irritated and friable. Findings are consistent with prolapsed uterus patient has a follow-up with her BELTING AND WEBBING INSPECTOR and I advised patient to keep that follow-up and discussed this with her BELTING AND WEBBING INSPECTOR at that time. Lab Data 04/19/25 21:00 04/19/25 21:00 Radiology Impressions Pelvis Ultrasound 04/19/25 20:43 IMPRESSION: No acute findings. Laboratory Results WBC 8.18 10^3/uL (3.29-11.43) 04/19/25 21:00 RBC 4.46 10^6/uL (3.85-5.65) 04/19/25 21:00 Hgb 11.70 g/dL (11.27-16.99) 04/19/25 21:00 Hct 36.8 % (36-47) 04/19/25 21:00 MCV 82.5 fl (85-98) L 04/19/25 21:00 MCH 26.2 pg (27-33) L 04/19/25 21:00 MCHC 31.8 g/dL (30-55) 04/19/25 21:00 RDW 15.0 % (12.1-15.1) 04/19/25 21:00 Plt Count 287 10^3/cmm (157-399) 04/19/25 21:00 MPV 9.2 fL (7.4-10.4) 04/19/25 21:00 Neut % (Auto) 57.1 % 04/19/25 21:00 Lymph % (Auto) 32.6 % 04/19/25 21:00 [place] % (Auto) 8.8 % 04/19/25 21:00 Eos % (Auto) 1.1 % 04/19/25 21:00 Baso % (Auto) 0.2 % 04/19/25 21:00 Neut # (Auto) 4.66 10^3/uL (1.8-7.7) 04/19/25 21:00 Lymph # (Auto) 2.7 10^3/uL (0.8-4.8) 04/19/25 21:00 [place] # (Auto) 0.7 10^3/uL (0.2-0.9) 04/19/25 21:00 Eos # (Auto) 0.1 10^3/uL (0.0-0.8) 04/19/25 21:00 Baso # (Auto) 0.0 10^3/uL (0.0-0.1) 04/19/25 21:00 Nucleated RBC % (auto) 0 % 04/19/25 21:00 Nucleated RBCs # 0.0 /100WBC 04/19/25 21:00 Sodium 139 mmol/L (136-145) 04/19/25 21:00 Potassium 3.9 mmol/L (3.5-5.1) 04/19/25 21:00 Chloride 101 mmol/L (98-107) 04/19/25 21:00 Carbon Dioxide 26 mmol/L (22-29) 04/19/25 21:00 Anion Gap 15.9 (5-19) 04/19/25 21:00 BUN 15 mg/dL (6-20) 04/19/25 21:00 Creatinine 0.8 mg/dL (0.5-0.9) 04/19/25 21:00 GFR Calculation 86.7 mL/min (90-130) L 04/19/25 21:00 Glucose 83 mg/dL (65-115) 04/19/25 21:00 Calculated Osmolality 288 mOsm/kg (285-295) 04/19/25 21:00 Calcium 9.5 mg/dL (8.5-10.5) 04/19/25 21:00 Total Bilirubin 0.2 mg/dL (0.15-1.2) 04/19/25 21:00 AST 12 U/L (0-32) 04/19/25 21:00 ALT 7 U/L (0-33) 04/19/25 21:00 Alkaline Phosphatase 89 U/L (35-105) 04/19/25 21:00 Total Protein 7.4 g/dL (6.6-8.7) 04/19/25 21:00 Albumin 4.2 g/dL (3.5-5.2) 04/19/25 21:00 Globulin 3.2 g/dL (1.3-4.6) 04/19/25 21:00 HCG, Qual Negative (Negative) 04/19/25 21:37 Urine Color Yellow (Yellow) 04/19/25 21:37 Urine Appearance Cloudy (CLEAR) A 04/19/25 21:37 Urine pH 7.0 (5-7) 04/19/25 21:37 Ur Specific [place] 1.025 (1.005-1.030) 04/19/25 21:37 Urine Protein Negative (Negative) 04/19/25 21:37 Urine Glucose (UA) Negative (Normal) 04/19/25 21:37 Urine Ketones Negative (Negative) 04/19/25 21:37 Urine Blood Negative (Negative) 04/19/25 21:37 Urine Nitrate Negative (Negative) 04/19/25 21:37 Urine Bilirubin Negative (Negative) 04/19/25 21:37 Urine Urobilinogen 1.0 mg/dL (Negative) 04/19/25 21:37 Ur Leukocyte Esterase Negative (Negative) 04/19/25 21:37 Urine RBC 0-2 /hpf (0-2) 04/19/25 21:37 Urine WBC 0-5 /hpf (0-5) 04/19/25 21:37 Ur Squamous Epith Cells 0-5 /hpf (0-5) 04/19/25 21:37 Amorphous Sediment Not Reportable 04/19/25 21:37 Urine Bacteria None seen /hpf (NONE) 04/19/25 21:37 Hyaline Casts 0-4 /lpf H 04/19/25 21:37 All radiology interpretation(s) finalized by discharge Discharge Plan Discharge Patient Disposition: Home Clinical Impression: Bacterial vaginosis, Prolapsed uterus Condition: Stable Prescriptions: New clindamycin phosphate 2 % cream 1 appful vaginal DAILY 7 Days Qty: 40 0RF Rx Instructions: for 3 days No Action buspirone 10 mg tablet 10 mg PO BID sertraline 25 mg tablet 25 mg PO DAILY escitalopram oxalate 10 mg tablet 10 mg PO DAILY bupropion HCl 150 mg tablet extended release 24 hr 150 mg PO DAILY acetaminophen 325 mg capsule 325 mg PO Q4H PRN (Reason: Postoperative fever or pain) Qty: 60 0RF ibuprofen 800 mg tablet 800 mg PO TID PRN (Reason: pain) Qty: 60 0RF Discharge Orders: Discharge ED (Routine); Ordered 04/19/25 Ordered By: Naila Toth Referrals: Debbie Slaughter PA [Primary Care Provider, [facility]] Patient Instructions: Opioid Safety, Pain Management, Patient Portal & Liseth Instructions, Uterine Prolapse (ED) Activity Restrictions/Additional Instructions: Please take medications as prescribed Pelvic rest until seen by BELTING AND WEBBING INSPECTOR Please follow-up with BELTING AND WEBBING INSPECTOR this week Return to ER with any worsening of symptoms or concerns Print Language: Malawian Coding Level of Care Code ED Cuff Runner for Tito Boyd
[2025-04-19 21:20] LABS: Hematocrit 36.8 % (36-47); Hemoglobin 11.70 g/dL (11.27-16.99); Mean Corpuscular HGB Conc 31.8 g/dL (30-55); Mean Corpuscular Hemoglobin 26.2 pg (27-33); Mean Corpuscular Volume 82.5 fl (85-98); Nucleated Red Blood Cells % 0 %; Platelet Count 287 10^3/cmm (157-399); Red Blood Count 4.46 10^6/uL (3.85-5.65); White Blood Count 8.18 10^3/uL (3.29-11.43)
[2025-04-19 21:32] LABS: Alanine Aminotransferase 7 U/L (0-33); Albumin Level 4.2 g/dL (3.5-5.2); Alkaline Phosphatase 89 U/L (35-105); Anion Gap 15.9 (5-19); Aspartate Amino Transferase 12 U/L (0-32); Blood Urea Nitrogen 15 mg/dL (6-20); Calcium 9.5 mg/dL (8.5-10.5); Carbon Dioxide 26 mmol/L (22-29); Chloride 101 mmol/L (98-107); Creatinine Clr Calc Pharmacy 104.9003; Globulin 3.2 g/dL (1.3-4.6); Glucose 83 mg/dL (65-115); Osmolality Calculated 288 mOsm/kg (285-295); Potassium 3.9 mmol/L (3.5-5.1); Sodium 139 mmol/L (136-145); Total Protein 7.4 g/dL (6.6-8.7)
[2025-04-19 21:47] LABS: HCG Qualitative Urine. Negative (Negative)
[2025-04-19 21:48] LABS: Glucose Urine UA Negative (Normal); Nitrate Urine Negative (Negative); Specific Gravity, Urine 1.025 (1.005-1.030)
[2025-04-19 21:50] LABS: Add Urine Microscopic? YES
== END 2025-04-19 23:05 | disposition home or self-care (01) ==
PROVIDERS: Emergency Provider Registered Nurse; PCP Physician Assistant
DX: N76.0 Acute vaginitis (principal); B96.89 Other specified bacterial agents as the cause of diseases classified elsewhere; N81.4 Uterovaginal prolapse, unspecified
CPT/HCPCS: 36415; 76856; 80053; 81001; 81025; 85025; 99284

== ENCOUNTER 2025-06-06 12:23 | Outpatient (RCR) | payer OTHER, SELFPAY | END 2025-07-03 23:59 | disposition home or self-care (01) | LOC: SPT 12:23 | PROVIDERS: Visit Provider Physician Assistant | DX: N81.4 Uterovaginal prolapse, unspecified (principal); K59.00 Constipation, unspecified; N39.46 Mixed incontinence | CPT/HCPCS: 97110; 97161 ==

== ENCOUNTER 2025-07-04 05:00 | Outpatient (RCR) | payer OTHER, SELFPAY | END 2025-08-03 23:59 | disposition home or self-care (01) | LOC: SPT 05:00 | PROVIDERS: Visit Provider Physician Assistant | DX: N81.4 Uterovaginal prolapse, unspecified (principal); K59.00 Constipation, unspecified; N39.46 Mixed incontinence | CPT/HCPCS: 97110; 97530 ==